=== PATIENT | female | born 1945 | race Caucasian/White ===

== ENCOUNTER 2017-05-21 16:31 | Inpatient (IN) ==
[2017-05-21] MEDS ORDERED: MORPHINE IV ONE ×2 (17:57→21:06)
[2017-05-21] MEDS ORDERED: ZOFRAN IV ONE ×2 (17:57→21:06)
--- NOTE | 2017-05-21 18:07 | PROVIDER DOCUMENTATION ---
This chart was entered by Cassie Nuñez Scribe, acting as scribe for Pema Almanza MD. HPI-Musculoskeletal Pain/Inj - GENERAL Source: patient - HX OF PRESENT ILLNESS-MUSKULOSKELTAL Quality of Pain: reports: sharp Severity in ED: mild Onset/Duration: just prior to arrival Timing: still present Any recent injury?: Yes Locality of Occurance: Home Similar Symptoms Previously?: Yes Recently seen or treated by another doctor?: No - FALL INJURY Location of Pain/Injury: reports: lower extremity (left hip left lower leg) Reason for Fall: reports: slipped Loss of Consciousness: no loss of consciousness <Pema Almanza - Last Filed: 05/21/17 18:07> <Rogerio Figueroa - Last Filed: 05/30/17 12:56> - GENERAL Chief Complaint: Fall Stated Complaint: FALL Time Seen by Provider: 05/21/17 17:36 - HX OF PRESENT ILLNESS-MUSKULOSKELTAL Nature of Presenting Problem: Pt is a 71 year old female who came to the ED with a cc of falling and hurting her left hip and not being able to get up off of the floor. Pt reports she fell on week ago and her hip was sore. today the pt fell again and hurt her left hip. Pt did not have any LOC. (Cassie Nuñez) Pt is a 71 year old female who came to the ED with a cc of falling and hurting her left hip and not being able to get up off of the floor. Pt reports she fell on week ago and her hip was sore. today the pt fell again and hurt her left hip. Pt did not have any LOC. (Pema Almanza) Review of Systems - Adult - REVIEW OF SYSTEMS - ADULT Constitutional: denies: chills, fever Eyes: reports: no symptoms reported Ears, Nose, Mouth & Throat: reports: no symptoms reported Cardiovascular: denies: chest pain, irregular heart rate, syncope Respiratory: reports: no symptoms reported Gastrointestinal: reports: no symptoms reported Genitourinary: reports: no symptoms reported Musculoskeletal: reports: bone pain (left leg). denies: frequent leg cramps, joint swelling Integumentary: reports: no symptoms reported Neurological: reports: no symptoms reported Psychiatric: reports: no symptoms reported Endocrine: reports: no symptoms reported Hematologic/Lymphatic: reports: no symptoms reported Allergic/Immunologic: reports: no symptoms reported All Other Systems: Reviewed and Negative <Pema Almanza - Last Filed: 05/21/17 18:07> - REVIEW OF SYSTEMS - ADULT Constitutional: reports: see HPI <Rogerio Fgiueroa - Last Filed: 05/30/17 12:56> Past History - Adult - PAST MEDICAL HISTORY-ADULT Review of Records: reports: Old Records Reviewed, Nursing Assessment Review Major Childhood Illnesses: reports: denies history Cardiovascular: reports: HTN Respiratory: reports: denies history Gastrointestinal: reports: denies history Obstetrical/Gynecological: reports: denies history Genitourinary: reports: denies history Musculoskeletal: reports: denies history Neurological: reports: denies history Endocrine/Immune: reports: denies history Other Conditions: reports: denies history <Pema Almanza - Last Filed: 05/21/17 18:07> - PAST MEDICAL HISTORY-ADULT Review of Records: reports: Old Records Reviewed <Rogerio Figueroa - Last Filed: 05/30/17 12:56> Physical Exam-Injury Related - Physical Exam-Injury Related Initial Vital Signs Reviewed: Yes General Appearance: alert, mild distress Eyes: PERRL/EOMI, pink conjunctivae Head, Ears, Nose, Mouth & Throat: normocephalic/atraumatic, moist mucous membranes Neck: non-tender, full range of motion Respiratory: chest non-tender, lungs clear Cardiovascular: normal peripheral pulses, regular rate, rhythm Abdominal Exam: normal bowel sounds, non tender, soft Back Exam: normal inspection Extremity: deformity (left leg shortened and rotated). negative: normal range of motion, normal gait Integumentary: normal color, warm/dry Neurologic: grossly normal Psych/Mental Status: normal mood/affect, normal thought content, normal thought process, oriented x 3 - Glascow Coma Score Best Eye Response ([place]): (4) open spontaneously Best Verbal Response ([place]): (5) oriented Best Motor Response ([place]): (6) obeys commands Lyndsay Total: 15 <Pema Almanza - Last Filed: 05/21/17 18:07> - Physical Exam-Injury Related General Appearance: alert <Rogerio Figueroa - Last Filed: 05/30/17 12:56> Progress - CHANGE OF SHIFT REPORT (ED Provider) Report Given and Care Transferred to:: rogerio figueroa Time of Transfer: 18:00 Items Pending: Labs, XRAY Results, Pain Control <Pema Almanza - Last Filed: 05/21/17 18:07> - PLAN OF CARE/RESULTS Result Diagrams: 05/24/17 05:55 05/23/17 05:30 - XRAY 1 XRAY Study: Chest Impression: See EMR Report (Borderline cardiomegaly Per radiologist.) - CT/MRI 1 CT Study: Cervical Spine, Head Impression: See EMR Report (Normal per radiologist) 2 CT Study: Pelvis Impression: See EMR Report (Intertrochanteric fx per radiologist.) - CONSULTS/PCP/HOSPITALIST Notification #1 *Consult/PCP/Hospitalist*: Dr. Reynolds Time Discussed: 21:20 Consult Disposition: Will see in ED, Admit <Rogerio Figueroa - Last Filed: 05/30/17 12:56> - PLAN OF CARE/RESULTS Progress/Plan/Lab Results: Orders Category Date Time Status Admit - [facility] - [facility] Routine AdmDCTranf 05/22/17 00:12 Ordered Activity - Strict Bedrest ORDERED Care 05/22/17 00:12 Active Apply Mechanical Device [QM] ORDERED Care 05/22/17 00:12 Active Kyle's Traction Placement ONCE Care 05/21/17 21:06 Completed Alonzo Cath Insertion ORDERED Care 05/21/17 17:57 Completed IV Insertion ORDERED Care 05/21/17 17:56 Completed Intake and Output-Strict ORDERED Care 05/22/17 00:12 Active Vital Signs Order Q 8-HR ASSESS Care 05/22/17 00:12 Completed NPO Diet 05/22/17 00:01 Completed CHEST-1 VIEW [RAD] Stat Exams 05/21/17 19:[address] HEAD/C-SPINE W/O CONTRAST [CT] Stat Exams 05/21/17 17:[address] PELVIS W/O CONTRAST [CT] Stat Exams 05/21/17 17:56 Completed CBC WITH DIFF [HEME] Stat Lab 05/21/17 18:33 Completed CBC WITH NO DIFF [HEME] Routine Lab 05/22/17 05:05 Completed COMPREHENSIVE METABOLIC PANEL [CHEM] Stat Lab 05/21/17 18:33 Completed PROTIME WITH INR [COAG] Stat Lab 05/21/17 18:33 Completed URINALYSIS W/POSS RFLX CULT-1 [URINALYSIS] Stat Lab 05/21/17 19:51 Completed 0.9% Sodium Chloride Inj [Ns] 1,000 ml Med 05/21/17 23:30 Discontinued IV 75 mls/hr Alendronate [Fosamax] Med 05/22/17 09:00 Discontinued 70 mg PO Q7D Amlodipine [Norvasc] Med 05/22/17 09:00 Discontinued 10 mg PO DAILY Gabapentin [Neurontin] Med 05/22/17 09:00 Discontinued 300 mg PO TID Hydrocodone/APAP 5 mg/325 mg [[place]-5] Med 05/21/17 23:30 Discontinued 1 each PO Q6H LISINOpril [Prinivil] Med 05/22/17 09:00 Discontinued 40 mg PO DAILY Morphine Med 05/21/17 23:29 Discontinued 2 mg IV Q4H PRN PRN Morphine Med 05/21/17 17:57 Discontinued 4 mg IV NOW ONE Morphine Med 05/21/17 21:06 Discontinued 4 mg IV NOW ONE Ondansetron [Zofran] Med 05/21/17 17:57 Discontinued 4 mg IV NOW ONE Ondansetron [Zofran] Med 05/21/17 21:06 Discontinued 4 mg IV NOW ONE Transfer/Admit Order [TRANSFER] Routine Transfer 05/21/17 23:25 Completed Departure <Pema Almanza - Last Filed: 05/21/17 18:07> - Departure Date of Disposition Decision: 05/21/17 Time of Disposition Decision: 22:00 Certified Medical Emergency: Emergent - Critical Care Note This patient required my direct & personal management of CC.: No <Rogerio Figueroa - Last Filed: 05/30/17 12:56> - Departure DIAGNOSIS: Hip fracture Qualifiers: Encounter type: initial encounter Disposition: ADMITTED INPATIENT 09 Condition: Stable Attestation - Physician/ DONA Attestation Patient care was provided by Advanced Practice Provider:: Yes Advanced Practice Provider:: Rogerio Figueroa Advanced Practice Provider documentation review:: The Mid-level provider documentation, treatment plan and medical decision making was reviewed by the physician who agrees with all treatment and medical decision making by the MLP. The physician spent face to face time with patient:: Yes Advanced Practice Provider documentation review:: Supervising physician onsite and consulted in the evaluation and care of this patient. The physician did have a face to face encounter with the patient. <Rogerio Figueroa - Last Filed: 05/30/17 12:56> This chart was documented by the indicated scribe, (Cassie Nuñez Scribe) and accurately reflects the services I performed and decisions made by me, Pema Almanza MD, as attested by the provider's signature.
[2017-05-21 19:02] LABS: INR 0.96
[2017-05-21 19:11] LABS: BASO% 0.1 % (0.0-0.8); EOS# 0.14 X1000 (0.0-0.7); EOS% 0.6 % (0.0-10.0); HEMATOCRIT 46.3 % (37.0-47.0); HEMOGLOBIN 15.5 g/dL (12.0-16.0); IMM GRAN# 0.41 X1000 (0.0-0.04); IMM GRAN% 1.8 % (0.0-0.5); LYMPH# 2.51 X1000 (1.2-3.4); LYMPH% 11.3 % (20.5-51.1); MANUAL DIFF NEEDED? NO; MCH 30.7 PG (27-31); MCHC 33.5 g/dL (33-37); MCV 91.7 FL (81-99); MONO% 12.6 % (1.7-9.3); MPV 10.8 FL (7.4-10.4); NEUT% 73.6 % (42.2-75.2); PLT 235 X1000 (130-400); RBC 5.05 XMIL (4.2-5.4)
[2017-05-21 19:38] LABS: AGAP 19; ALBUMIN 3.6 g/dL (3.5-5.0); ALKALINE PHOSPHATASE 55 U/L (32-104); BUN 22 mg/dL (8-22); CHLORIDE 99 mmol/L (98-107); COSMO 283; GOT 21 U/L (10-30); GPT 21 U/L (10-36); POTASSIUM 4.7 mmol/L (3.5-5.1); SODIUM 137 mmol/L (136-145); TCO2 19 mmol/L (25-35); TOTAL BILIRUBIN 0.22 mg/dL (0.20-1.00); TOTAL PROTEIN 6.3 g/dL (6.3-8.3)
--- NOTE | 2017-05-21 19:39 | Diag Imaging Result Doc PS360 ---
EXAM: HEAD/C-SPINE W/O CONTRAST HISTORY: fall leg pain TECHNIQUE: CT of the head without contrast; CT of the cervical spine COMMENT: There are calcifications in the left vertebral and both internal carotid arteries. There is no evidence of mass effect bleed or abnormal extra-axial fluid collection. There are no previous studies. There are no acute bony abnormalities. Cervical spine: There is no evidence of fracture or subluxation. There is severe facet arthropathy on the left at the C4-5 level. IMPRESSION: 1. No evidence of acute intracranial disease. 2. Facet arthropathy. No evidence of acute bony disease in the cervical spine. Electronically signed by Minor Brock 05/21/2017 7:36 PM
--- NOTE | 2017-05-21 19:41 | Diag Imaging Result Doc PS360 ---
EXAM: PELVIS W/O CONTRAST HISTORY: fall left hip pain TECHNIQUE: CT of the bony pelvis COMMENT: There is severe degenerative changes in the lower lumbar spine including hypertrophic facet disease at the L5-S1 level. There is vacuum joint phenomenon in the right sacroiliac joint. There is a minimally displaced intertrochanteric fracture of the proximal left femur. There is degenerative change in the symphysis pubis. IMPRESSION: Left intertrochanteric fracture. Degenerative changes. Electronically signed by Minor Brock 05/21/2017 7:39 PM
--- NOTE | 2017-05-21 19:43 | Diag Imaging Result Doc PS360 ---
EXAM: CHEST-1 VIEW HISTORY: weakness TECHNIQUE: AP chest COMMENT: The left ventricle is somewhat prominent. The lungs appear to be clear. There are no previous studies available for comparison. IMPRESSION: Borderline cardiomegaly. Electronically signed by Minor Brock 05/21/2017 7:41 PM
[2017-05-21 20:01] LABS: BILIRUBIN URINE NEGATIVE (NEGATIVE); BLOOD URINE NEGATIVE (NEGATIVE); COLOR YELLOW; GLUCOSE URINE NEGATIVE (NEGATIVE); LEUKOCYTES URINE NEGATIVE (NEGATIVE); NITRITE URINE NEGATIVE (NEGATIVE); PH URINE 5.5; PROTEIN URINE TRACE mg/dL (NEGATIVE); SP GRAVITY URINE 1.024; TURBIDITY URINE CLEAR (CLEAR); URINE CULTURE NEEDED? NO; URINE MICRO REVIEW NEEDED? NO; URINE SOURCE CATH; UROBILINOGEN URINE NORMAL (NORMAL)
[2017-05-21 20:02] LABS: UR EPITHELIAL CELLS <10 /HPF (<10); URINE BACTERIA NEGATIVE /HPF; URINE RBC <10 /HPF (<10); URINE WBC <10 /HPF (<10)
[2017-05-22] MEDS: MORPHINE IV PRN ×4 (00:17→09:19)
[2017-05-22] MEDS: NORCO-5 PO SCH ×3 (00:28→14:14)
[2017-05-22] MEDS: NS 1,000 ML IV SCH ×3 (02:42→14:24)
--- NOTE | 2017-05-22 04:23 | HISTORY AND PHYSICAL ---
PRIMARY CARE PHYSICIAN: Dr. Valentine Islas. CHIEF COMPLAINT: Fall. HISTORY OF PRESENT ILLNESS: Ms. Decker is a 71-year-old lady with a past medical history of chronic back pain, hypertension, major depression disorder who comes to the hospital complaining of hip pain secondary to fall. The patient states that earlier today, around 2:30 p.m., she decided to take a nap, was on her way to her bed and right next to it, she fell. The patient did hit her head. Did not lose consciousness. The patient denies feeling any chest pain, shortness of breath, or dizziness prior to the incident. However, she states that her right before it, she took gabapentin and oxycodone, and attributes her fall to using these 2 medications. The patient was found on the ground by her who tried to get her up. He was not successful and therefore called EMS who picked the patient up and brought her to the hospital. REVIEW OF SYSTEMS: Positive for left hip pain, worse with movement. Without movement, it is 2/10. PAST MEDICAL HISTORY: Chronic back pain secondary to spinal stenosis, hypertension, major depression disorder, GERD, osteopenia. PAST SURGICAL HISTORY: Cholecystectomy, right knee replacement, and cataract surgery. ALLERGIES: None. HOME MEDICATIONS: The patient states she does not remember exactly what her doses are but she does remember her medications which include lisinopril, amlodipine, sertraline, omeprazole, alendronate on Sundays, gabapentin 300 mg t.i.d., oxycodone p.r.n. back pain. SOCIAL HISTORY: Patient stopped smoking as a teenager. Does not use alcohol or illicit drugs. Patient lives with her . PHYSICAL EXAMINATION: VITAL SIGNS: Temperature 97.8 degrees, pulse 76, respirations 24, blood pressure 171/50, oxygen saturation 98% on room air. GENERAL: Patient is alert and oriented x3. No acute distress. HEENT: Head is normocephalic, atraumatic. Eyes, PERRLA. Moist mucous membranes. NECK: Supple. No JVD. PULMONARY: Well-ventilated bilaterally. No wheezing, rales, or crackles. CARDIOVASCULAR: S1, S2. No rubs, murmurs, or gallops. ABDOMEN: Soft, nondistended, nontender. EXTREMITIES: No lower extremity edema. The patient is unable to move her left extremity due to pain. The patient has intact sensation in both extremities. Palpable pulses on both extremities. Positive pedal pulses. NEUROLOGIC: Cranial nerves 2-12 grossly intact. No focal deficits. PSYCHIATRIC: Normal mood and affect. LABORATORY DATA: White blood cell count 22, hemoglobin 15.5, hematocrit 46, platelets 235,000. Sodium 137, potassium 4.7, BUN 22, creatinine 0.5, glucose 201. LFTs within normal limits. INR 0.9. IMAGING: Chest x-ray shows borderline cardiomegaly. CT of the bony pelvis shows left intertrochanteric fracture with some degenerative changes. Head CT shows no acute intracranial disease. ASSESSMENT AND PLAN: 1. Left intertrochanteric fracture. Orthopedics will be consulted. The patient will be placed nothing per oral. Pain management will be with intravenous morphine. The patient has a Kyle's traction device of 5 pounds. 2. Leukocytosis. This is likely reactive leukocytosis secondary to the fall. The patient does not have any fever or any other signs of infection. We will continue to monitor and follow a CBC for tomorrow. 3. Falls. The patient states this is the 2nd time that she falls. She may need readjustment in home medications, especially gabapentin and oxycodone. 4. Hypertension. We will continue patient's home medication, lisinopril and amlodipine. 5. Chronic pain. As mentioned above, she may need readjustment in gabapentin and Vicodin. At the moment, due to the fracture, pain management will be controlled with intravenous morphine. 6. Osteoporosis. It is recommended that the patient might discontinue proton pump inhibitors and also for May 22, she is due for her medication alendronate. CODE STATUS: Full code. cc: Eva Reynolds MD
[2017-05-22 05:52] LABS: HEMATOCRIT 44.4 % (37.0-47.0); HEMOGLOBIN 14.6 g/dL (12.0-16.0); MCH 30.6 PG (27-31); MCHC 32.9 g/dL (33-37); MCV 93.1 FL (81-99); MPV 10.5 FL (7.4-10.4); RBC 4.77 XMIL (4.2-5.4)
[2017-05-22] MEDS ORDERED: DIPRIVAN 1% ONE (08:57)
[2017-05-22] MEDS ORDERED: FOSAMAX PO SCH (09:00)
[2017-05-22] MEDS: NEURONTIN PO SCH ×3 (09:21→17:02)
[2017-05-22] MEDS: NORVASC PO SCH (09:23)
[2017-05-22] MEDS ORDERED: ZOFRAN ONE (10:39)
[2017-05-22] MEDS ORDERED: DECADRON ONE (10:39)
[2017-05-22] MEDS ORDERED: KEFZOL 2 GM/D5W 2 GM/50 ML IVPB ONE (11:28)
[2017-05-22] MEDS ORDERED: NEOSPORIN G.U. IRRIGANT ONE (11:28)
[2017-05-22] MEDS ORDERED: FENTANYL ONE (12:06)
[2017-05-22] MEDS: MORPHINE ONE ×2 (13:06→13:11)
[2017-05-22] MEDS ORDERED: PHENERGAN ONE (13:17)
[2017-05-22] MEDS ORDERED: MORPHINE ONE (13:24)
[2017-05-22] MEDS ORDERED: NS 1,000 ML ONE (13:24)
[2017-05-22] MEDS ORDERED: LR 500 ML ONE (13:26)
[2017-05-22] MEDS ORDERED: HALDOL IV PRN (14:24)
[2017-05-22] MEDS ORDERED: MORPHINE IV PRN (14:24)
[2017-05-22] MEDS ORDERED: MILK OF MAGNESIA PO PRN (14:24)
[2017-05-22] MEDS ORDERED: ZOFRAN IV PRN (14:24)
--- NOTE | 2017-05-22 14:32 | PROGRESS NOTE ---
DATE: 05/22/2017 SUBJECTIVE: Ms. Decker was admitted this morning. Valentine Islas MD is her primary care physician. The story was I think that she had a fall about a week ago and then had a recent fall and apparently was ambulating in between, but this time they found a left hip fracture. Scheduled this morning. Actually she has already had her open reduction, internal fixation. OBJECTIVE: Vital signs: She has remained afebrile. Temperature 99.8 degrees, pulse 80, respirations 20, blood pressure 170/64. Lungs: Clear in all lung kohler. Cardiovascular: Regular rate without murmur or S3. Abdomen: Soft. Skin: Warm and dry. : Urine output 1100 mL. LABORATORY: White count 17,210, hematocrit 44, platelet count 243,000. Chemistry: Sodium 137, potassium 4.7, chloride 99, bicarb 19, BUN 22, creatinine 0.5. Liver functions unremarkable. Note she had a chest x-ray, borderline cardiomegaly, otherwise, unremarkable pelvic CT. ASSESSMENT AND PLAN: 1. Left intertrochanteric fracture. Degenerative changes seen. Head and cervical spine, no evidence of acute intracranial disease. Facet arthropathy noted. Patient seems to be doing well. Note leukocytosis will follow. Suspect this is demargination from pain and stress. 2. Hypertension. We will watch blood pressure. 3. History of chronic pain. We will readjust her gabapentin and Vicodin. I think they want to try and go to rehab also. 4. History of osteoporosis. Review orders. I do not see anything to change at this point. I know that they would like to go to rehab, so we will get social media marketing manager involved. I think they would like to try and go to [facility] I think is what she said. cc: Vijay Walker MD
--- NOTE | 2017-05-22 15:35 | OPERATIVE NOTE ---
PROCEDURE DATE: 05/22/2017 PREOPERATIVE DIAGNOSIS: Left intertrochanteric femur fracture. POSTOPERATIVE DIAGNOSIS: Left intertrochanteric femur fracture. PROCEDURE: Intramedullary nailing of left femur with a Synthes 11 x 360 mm TFN nail. SURGEON: Joseph Monet MD. ANESTHESIA: General. IV FLUIDS: 500 mL lactated Ringer's. ESTIMATED BLOOD LOSS: 150 mL. COMPLICATIONS: None. INDICATION: The patient is a 71-year-old female who is 1-day status post fall, injuring her left hip. She presented to the emergency room. CT scan revealed intertrochanteric femur fracture. Recommendation to proceed with intramedullary nailing was offered. Risks and benefits of the surgery were explained, including risk of anesthesia, , bleeding, infection, failure to relieve pain, postoperative stiffness, nerve injury, blood clots, and other imponderables. All questions were answered. The patient and family wished to proceed with surgery. DETAILS OF OPERATION: The patient was taken to the operating room and placed supine on the operating table. Once adequate anesthesia was obtained, the patient was placed on a fracture table. I had good alignment confirmed with C-arm visualization. The left lower extremity was subsequently prepped and draped in usual sterile fashion. At approximately 3 fingerbreadths proximal to the greater trochanter, a lateral incision was made. Blunt dissection was performed through the gluteus lori with the Rowan scissors. After this had been performed, a guide pin was then placed on the tip of the greater trochanter into the intramedullary canal. I had good position confirmed with C-arm visualization. A starting reamer was passed. A ball-tip guide pin was then placed into the intramedullary canal, down the femoral shaft. The length of the nail was determined to be 360 mm. Reaming was then conducted up to size 12 mm. An 11 x 360 mm Synthes TFN nail was then impacted in position. I had good position confirmed with C-arm visualization. Using the outrigger guide, an incision made along the lateral proximal femur. The guide was then placed along the lateral cortex of the proximal femur. A guide pin was then placed across the fracture site into the femoral neck and head. It had good position confirmed with C-arm visualization, in both AP and lateral projections. The lateral cortex was reamed. A 90 mm helical blade was then impacted in position and had good purchase. The proximal screw was tightened. Attention then turned to the distal femur where, using perfect-seminole technique through 2 small stab incisions, 2 distal locking screws were placed in standard fashion. After this had been placed, the final C-arm visualization revealed good alignment of the fracture and good position of the hardware. The wounds were copiously irrigated. Number 1 Vicryl was used to repair the deep fascia on the proximal wound, followed by 2-0 Vicryl in 2 proximal wounds, and skin chacha in all the wounds. Adaptic, sterile 4x4's, ABD pad, and tape to the left lower extremity. The patient tolerated the procedure well, no complications. She was transferred to recovery room in stable condition. cc: Joseph Monet MD
[2017-05-22] MEDS: PRINIVIL PO SCH (17:01)
[2017-05-22] MEDS: OXY IR PO PRN ×2 (17:01→20:13)
[2017-05-22] MEDS: TYLENOL PO SCH ×2 (18:10→21:52)
--- NOTE | 2017-05-22 18:54 | CONSULTATION ---
DATE OF CONSULTATION: 05/22/2017 CLINICAL HISTORY: The patient is a pleasant 71-year-old female, who is status post fall yesterday afternoon. She was at home and she lost her balance and fell while she was on the way to her bed. The patient struck her head; however, did not lose consciousness. She does have a history of chronic back pain. She was found on the ground by are who tried to assist her up and she was subsequently transported per EMS to the emergency room. X-rays were obtained that revealed a left intertrochanteric femur fracture and orthopedic evaluation was requested. HOME MEDICATIONS: Lisinopril, amlodipine, sertraline, omeprazole, alendronate Sundays, gabapentin 300 mg t.i.d., oxycodone p.r.n. pain. ALLERGIES: None. PAST MEDICAL HISTORY: Significant for chronic back pain with spinal stenosis, hypertension, major depression disorder, gastroesophageal reflux disease, osteopenia. PAST SURGICAL HISTORY: Cholecystectomy, right knee replacement, cataract surgery. PHYSICAL EXAMINATION: Patient is awake, alert, and cooperative with exam. She has no significant tenderness to palpation along the cervical spine. Her bilateral upper extremities are with no palpable deformity. She is able actively elevate her arms without difficulty. She has no significant pain with range of motion. Patient's right lower extremity is grossly neurovascularly intact. Has no significant pain with gentle range of motion hip, knee and ankle. Her left hip is currently in 5 pounds of Kyle's traction. Diffuse tenderness to palpation along the hip. She has tenderness with gentle movement. Calf is soft. She is grossly neurovascularly intact distally. DIAGNOSTICS: Her x-rays were reviewed and revealed a left intertrochanteric femur fracture. IMPRESSION: Left intertrochanteric femur fracture. PLAN: At this point, I discussed treatment options with patient and family. At this time would recommend proceeding with intramedullary nailing of the left femur. Risks and benefits of surgery were explained, including the risks of anesthesia, , bleeding, infection, failure to relieve pain, postoperative stiffness, nerve injury, blood clots, and other imponderables. All questions answered. The patient and family wished to proceed with surgery. Plan on surgery later today. cc: Joseph Monet MD MTDD
[2017-05-22] MEDS: KEFZOL 2 GM/D5W 2 GM/50 ML IVPB IV SCH (20:14)
[2017-05-22] MEDS: COLACE PO SCH (21:52)
[2017-05-22] MEDS: PERIDEX MT SCH (21:53)
[2017-05-23] MEDS: OXY IR PO PRN ×6 (02:27→23:21)
[2017-05-23] MEDS: NS 1,000 ML IV SCH ×2 (02:28→16:27)
[2017-05-23] MEDS: KEFZOL 2 GM/D5W 2 GM/50 ML IVPB IV SCH ×2 (02:33→12:07)
[2017-05-23] MEDS: TYLENOL PO SCH ×4 (05:37→23:47)
[2017-05-23] MEDS: XARELTO PO SCH (05:37)
[2017-05-23 06:01] LABS: MANUAL DIFF NEEDED? NO
[2017-05-23 06:05] LABS: BASO% 0.1 % (0.0-0.8); HEMATOCRIT 40.7 % (37.0-47.0); HEMOGLOBIN 13.2 g/dL (12.0-16.0); IMM GRAN# 0.12 X1000 (0.0-0.04); IMM GRAN% 0.7 % (0.0-0.5); LYMPH# 1.69 X1000 (1.2-3.4); LYMPH% 10.5 % (20.5-51.1); MCH 30.6 PG (27-31); MCHC 32.4 g/dL (33-37); MCV 94.2 FL (81-99); MONO# 2.62 X1000 (0.11-0.59); MONO% 16.3 % (1.7-9.3); MPV 10.1 FL (7.4-10.4); NEUT% 72.4 % (42.2-75.2); PLT 204 X1000 (130-400); RBC 4.32 XMIL (4.2-5.4)
--- NOTE | 2017-05-23 06:05 | EKG Report ---
Test Performed on : 05/22/2017 09:27:25 AM Test Reason : pre op Blood Pressure : / mmHG Vent. Rate : 072 BPM Atrial Rate : 072 BPM P-R Int : 162 ms QRS Dur : 080 ms QT Int : 392 ms P-R-T Axes : 047 015 033 degrees QTc Int : 429 ms Normal sinus rhythm. Normal ECG When compared with ECG of 26-DEC-2007 10:22, No significant change was found Nonspecific T wave abnormality III T wave amplitude has increased in V1-V3 Confirmed by Micah Espana DO ([id number]) on 05/26/2017 6:58:57 AM
[2017-05-23 06:51] LABS: AGAP 10; BUN 9 mg/dL (8-22); CALCIUM 8.4 mg/dL (8.8-10.2); CHLORIDE 102 mmol/L (98-107); COSMO 278; POTASSIUM 4.2 mmol/L (3.5-5.1); SODIUM 139 mmol/L (136-145); TCO2 27 mmol/L (25-35)
--- NOTE | 2017-05-23 07:04 | PROGRESS NOTE ---
DATE: 05/23/2017 HISTORY: The patient is a pleasant, 71-year-old female who is 1 day status post intramedullary nailing of the left femur. She is currently resting comfortably and has no complaints. PHYSICAL EXAMINATION: On physical examination of the left lower extremity, the dressing is intact. Her calf is soft. She has active dorsiflexion and plantarflexion. She is neurovascularly intact distally. LABORATORY DATA: Her hemoglobin is 13.2, hematocrit is 40.7. IMPRESSION: Postoperative day #1 status post intramedullary nailing of the left femur. PLAN: At this point, we will mobilize with physical therapy. The patient will be weightbearing as tolerated to the left lower extremity. We will consult social media developer for discharge planning. cc: Joseph Monet MD
[2017-05-23] MEDS: NEURONTIN PO SCH ×3 (08:52→17:17)
[2017-05-23] MEDS: FERROUS SULFATE PO SCH (08:52)
[2017-05-23] MEDS: NORVASC PO SCH ×2 (08:52→20:52)
[2017-05-23] MEDS: PRINIVIL PO SCH ×2 (08:53→20:52)
[2017-05-23] MEDS: PERIDEX MT SCH ×2 (08:53→20:07)
[2017-05-23] MEDS: ZOLOFT PO SCH (08:57)
--- NOTE | 2017-05-23 09:38 | PROGRESS NOTE ---
DATE: 05/23/2017 SUBJECTIVE: Mr. Decker has had a good night. Doing well. Still has some hip pain but she ate a good breakfast and breathing comfortably. PHYSICAL EXAMINATION: Vital Signs: Temperature 98.6 degrees, pulse 69, respirations 17, blood pressure 128/39. Lungs: Clear in all lung kohler. Cardiovascular Examination: Regular rhythm and rate without murmur or S3. Abdomen: Soft. Skin: Is warm and dry. Is and Os: Urine output 2600 mL. LAB REVIEW: From this morning, white count 16,070, hematocrit 40, platelet count 204,000. Chemistry: Sodium 139, potassium 4.2, chloride 102, bicarb 27, BUN 9, creatinine 0.4, blood sugar 201 and 128. ASSESSMENT AND PLAN: 1. Postoperative day a, status post intramedullary nailing of the femur. Doing well. Continue physical therapy, mobilize. 2. History of hypertension. Blood pressure well controlled. 3. History of chronic pain, aware. 4. History of osteoporosis. 5. I have reviewed her lab and have reviewed the current orders. Note that hematocrit is stable at 40. Orders looked good. We started her back on her Zoloft which she takes at home. She is on Xarelto 10 mg, back on her Neurontin 300 mg three times a day, Prinivil 40 mg a day, amlodipine 10 mg a day. She takes Fosamax 70 mg by mouth weekly. Intravenous fluid is going at 83 mL an hour, normal saline. cc: Vijay Walker MD
[2017-05-23] MEDS: COLACE PO SCH (20:07)
[2017-05-24] MEDS: OXY IR PO PRN ×4 (03:12→14:09)
[2017-05-24] MEDS: XARELTO PO SCH (06:20)
[2017-05-24] MEDS: TYLENOL PO SCH (06:21)
[2017-05-24 06:31] LABS: HEMATOCRIT 40.1 % (37.0-47.0); HEMOGLOBIN 12.8 g/dL (12.0-16.0)
--- NOTE | 2017-05-24 06:44 | PROGRESS NOTE ---
DATE: 05/24/2017 SUBJECTIVE: The patient is a pleasant 71-year-old female who is 2 days status post intramedullary nailing of the left femur. The patient is currently resting comfortably. OBJECTIVE: Her vital signs are stable. Left lower extremity. Her wounds look good. There are no signs of infection. Her calf is soft. She is neurovascularly distally. She has active dorsiflexion and plantar flexion. Her hemoglobin and hematocrit is pending. IMPRESSION: Postoperative day #2, status post intramedullary nailing of the left femur. PLAN: At this point, discussed treatment options with the patient. At this time, child protective services social worker has been consulted for inpatient rehabilitation. We will change her dressing today. She is stable from an orthopedic standpoint. cc: Joseph Monet MD
[2017-05-24] MEDS: FERROUS SULFATE PO SCH (08:43)
[2017-05-24] MEDS: ZOLOFT PO SCH (08:43)
[2017-05-24] MEDS: NORVASC PO SCH (08:43)
[2017-05-24] MEDS: PERIDEX MT SCH (08:43)
[2017-05-24] MEDS: PRINIVIL PO SCH (08:44)
[2017-05-24] MEDS ORDERED: NEURONTIN PO SCH (09:00)
--- NOTE | 2017-05-24 09:42 | DISCHARGE SUMMARY ---
ADMISSION DATE: 05/22/2017 DISCHARGE DATE: 05/24/2017 PATIENT PROFILE: She is a patient of Dr. Valentine Islas. HISTORY OF PRESENT ILLNESS: This is a 71-year-old with past medical history of chronic back pain, hypertension, major depression disorder, who came to the hospital complaining of hip pain secondary to fall. She states that earlier in that day around 2:30 p.m. she had decided to take a nap on her way to her bed at night, and right next to it she fell. The patient did hit her head. Did not lose consciousness. Denies feeling any chest pain, shortness of breath. No dizziness prior to the accident. States the night before she had took gabapentin and oxycodone; attributes the fall to these 2 medications. The patient was found to be on the ground; the tried to get her up unsuccessful, brought her to the emergency room, positive for left hip pain and found a left hip fracture. PAST MEDICAL HISTORY: 1. Chronic pain syndrome due to spinal stenosis. 2. Hypertension. 3. Major depression disorder. 4. Gastroesophageal reflux disease. 5. Osteopenia. PAST SURGICAL HISTORY: 1. Status post cholecystectomy. 2. Status post right knee replacement. 3. Cataract surgery. ALLERGIES: Codeine. No other known drug allergies. HOSPITAL COURSE: Orthopedic surgeon, Dr. Joseph Monet, evaluated her and performed surgery on 05/22/2017, intramedullary nailing of the femur. She tolerated this well. Tolerated physical therapy. No complications. She had very mild acute blood loss; hematocrit went from 46 to 40 and remained stable. [place] she could go to rehab at [facility] on 05/24/2017. DISCHARGE MEDICATIONS: She will be discharged on Tylenol as needed 1000 mg p.o. q. 8 hours p.r.n. She takes Fosamax 70 mg p.o. q. week, Norvasc 10 mg a day, Colace 200 mg at bedtime, ferrous sulfate 325 mg with breakfast, Neurontin 300 mg that she takes 3 times a day at 9 o'clock, 3 o'clock, and 9 o'clock in the evening, lisinopril 40 mg a day, milk of magnesia 30 mL p.o. daily p.r.n. She is on oxycodone or OxyIR 5 mg q. 3 hours p.r.n., Xarelto 10 mg q. 24 hours and Zoloft 50 mg a day. cc: Vijay Walker MD
[2017-05-24] MEDS ORDERED: ZOFRAN PO ONE (12:30)
[2017-05-24] MEDS ORDERED: BLISTEX MEDICATED BERRY LIP BALM TOP PRN (12:39)
[2017-05-24 13:44] VITALS: BP 158/68
== END 2017-05-24 14:56 ==
LOC: ED 16:31 → 4N 23:53 → SUATTDRO 23:53
PROVIDERS: ATTEND Emergency Medicine

== ENCOUNTER 2017-07-12 09:05 | Inpatient (IN) ==
--- NOTE | 2017-07-12 10:33 | Diag Imaging Result Doc PS360 ---
CT ABD/PELVIS W/PO AND IV CON - 07/12/2017 INDICATION: ABD PN TECHNIQUE: A CT dose reduction protocol was used. COMPARISON: 05/21/2017 FINDINGS: There is a new large midline deep pelvic enhancing soft tissue and fluid density collection. This has a thick irregular enhancing soft tissue rim and collocated fluid center. This measures about 7.3 x 6.9 cm. This appears to arise from the uterine body and fundus. There is some trace surrounding free fluid is well. A portion of this collection does wrap around the sigmoid colon which is otherwise nonobstructed. There is mild nonspecific mesenteric edema with some top normal sized mesenteric lymph nodes. Otherwise, no bowel obstruction. Gallbladder is absent. The liver, pancreas, adrenals, and kidneys are normal. The spleen is slightly enlarged measuring 13.7 x 11.2 x 5.6 cm. There is stable anterolisthesis of L4 on L5 with stable spondylosis throughout the spine. IMPRESSION: 1. New, large midline pelvic enhancing fluid collection compatible with an abscess. The differential diagnosis includes a diverticular abscess, appendicitis, or uterine abscess. Urgent referral to general surgery recommended. 2. Mild splenic megaly. 3. A report was immediately called to the patient's healthcare provider. Electronically signed by Vincenzo Fowler 07/12/2017 10:30 AM
[2017-07-12] MEDS ORDERED: PROTONIX IV SCH (12:15)
[2017-07-12] MEDS ORDERED: SODIUM CHLORIDE 0.9% INJ SCH (12:15)
[2017-07-12] MEDS ORDERED: TYLENOL PO PRN (12:32)
[2017-07-12 12:53] LABS: BASO% 0.2 % (0.0-0.8); EOS# 0.05 X1000 (0.0-0.7); EOS% 0.2 % (0.0-10.0); HEMATOCRIT 38.5 % (37.0-47.0); HEMOGLOBIN 12.6 g/dL (12.0-16.0); IMM GRAN# 0.17 X1000 (0.0-0.04); IMM GRAN% 0.8 % (0.0-0.5); LYMPH# 2.47 X1000 (1.2-3.4); LYMPH% 12.3 % (20.5-51.1); MANUAL DIFF NEEDED? YES; MCH 29.6 PG (27-31); MCHC 32.7 g/dL (33-37); MCV 90.6 FL (81-99); MONO# 2.38 X1000 (0.11-0.59); MONO% 11.9 % (1.7-9.3); MPV 9.7 FL (7.4-10.4); NEUT% 74.6 % (42.2-75.2); PLT 376 X1000 (130-400); RBC 4.25 XMIL (4.2-5.4)
[2017-07-12] MEDS: ZOFRAN IV PRN (12:55)
[2017-07-12] MEDS: ZOSYN 3.375 GM in NS 50 ML IV SCH ×2 (12:55→18:57)
[2017-07-12 12:56] LABS: INR 1.08; PROTIME 11.4 Seconds (9.2-11.7)
[2017-07-12 13:26] LABS: AGAP 15; ALBUMIN 3.8 g/dL (3.5-5.0); ALKALINE PHOSPHATASE 67 U/L (32-104); BUN 7 mg/dL (8-22); CALCIUM 9.5 mg/dL (8.8-10.2); CHLORIDE 89 mmol/L (98-107); COSMO 263; GOT 10 U/L (10-30); GPT 10 U/L (10-36); MAGNESIUM 1.7 mg/dL (1.5-2.7); POTASSIUM 3.4 mmol/L (3.5-5.1); SODIUM 132 mmol/L (136-145); TCO2 28 mmol/L (25-35); TOTAL BILIRUBIN 0.34 mg/dL (0.20-1.00); TOTAL PROTEIN 7.5 g/dL (6.3-8.3)
[2017-07-12 14:08] LABS: LYMPHS 14 % (21-51); MONO 9 % (1-9)
[2017-07-12] MEDS: NS 1,000 ML IV SCH (16:29)
[2017-07-12] MEDS: LOVENOX SUBQ SCH (16:30)
[2017-07-12 18:33] LABS: URINE CULTURE NEEDED? NO; URINE MICRO REVIEW NEEDED? NO; URINE SOURCE CLEAN CATCH
[2017-07-12 18:37] LABS: BILIRUBIN URINE NEGATIVE (NEGATIVE); BLOOD URINE NEGATIVE (NEGATIVE); COLOR YELLOW; GLUCOSE URINE NEGATIVE (NEGATIVE); LEUKOCYTES URINE NEGATIVE (NEGATIVE); NITRITE URINE NEGATIVE (NEGATIVE); PH URINE 6.5; PROTEIN URINE NEGATIVE (NEGATIVE); SP GRAVITY URINE 1.022; TURBIDITY URINE CLEAR (CLEAR); UR EPITHELIAL CELLS <10 /HPF (<10); URINE BACTERIA NEGATIVE /HPF; URINE RBC <10 /HPF (<10); URINE WBC <10 /HPF (<10); UROBILINOGEN URINE NORMAL (NORMAL)
[2017-07-12] MEDS: NEURONTIN PO SCH (20:29)
[2017-07-12] MEDS: LIPITOR PO SCH (20:29)
[2017-07-12] MEDS: NORCO-7.5 PO PRN (20:42)
[2017-07-13] MEDS: NS 1,000 ML IV SCH ×4 (00:54→20:29)
[2017-07-13] MEDS: ZOSYN 3.375 GM in NS 50 ML IV SCH ×4 (00:54→20:29)
[2017-07-13 06:48] LABS: MANUAL DIFF NEEDED? NO
[2017-07-13 07:00] LABS: BASO% 0.3 % (0.0-0.8); EOS# 0.09 X1000 (0.0-0.7); EOS% 0.9 % (0.0-10.0); HEMATOCRIT 37.3 % (37.0-47.0); HEMOGLOBIN 12.2 g/dL (12.0-16.0); IMM GRAN% 1.1 % (0.0-0.5); LYMPH# 2.25 X1000 (1.2-3.4); LYMPH% 23.7 % (20.5-51.1); MCH 29.8 PG (27-31); MCHC 32.7 g/dL (33-37); MCV 91.2 FL (81-99); MONO# 1.14 X1000 (0.11-0.59); MPV 9.8 FL (7.4-10.4); PLT 353 X1000 (130-400); RBC 4.09 XMIL (4.2-5.4)
[2017-07-13 07:12] LABS: AGAP 11; BUN 6 mg/dL (8-22); CALCIUM 9.3 mg/dL (8.8-10.2); CHLORIDE 97 mmol/L (98-107); COSMO 273; POTASSIUM 3.9 mmol/L (3.5-5.1); SODIUM 137 mmol/L (136-145); TCO2 29 mmol/L (25-35)
[2017-07-13] MEDS: GLUCOSAMINE PO SCH (08:09)
[2017-07-13] MEDS: PRINIVIL PO SCH (08:09)
[2017-07-13] MEDS: CENTRUM SILVER PO SCH (08:10)
[2017-07-13] MEDS: NEURONTIN PO SCH ×3 (08:10→20:30)
[2017-07-13] MEDS: NORCO-7.5 PO PRN ×2 (08:10→15:27)
[2017-07-13] MEDS: VITAMIN D PO SCH (08:10)
[2017-07-13] MEDS: NORVASC PO SCH (08:10)
[2017-07-13] MEDS: LOFIBRA PO SCH (08:11)
[2017-07-13] MEDS: ZOLOFT PO SCH (08:12)
[2017-07-13] MEDS: PRILOSEC PO SCH (08:12)
[2017-07-13] MEDS ORDERED: BLISTEX MEDICATED BERRY LIP BALM TOP PRN (08:50)
[2017-07-13] MEDS ORDERED: GOLYTELY PO ONE (10:00)
[2017-07-13] MEDS: NEOMYCIN PO SCH ×3 (13:41→20:30)
[2017-07-13] MEDS: ERYTHROMYCIN BASE PO SCH ×3 (13:42→20:29)
[2017-07-13] MEDS: LOVENOX SUBQ SCH (15:27)
[2017-07-13] MEDS: ZOFRAN IV PRN (15:27)
[2017-07-13] MEDS: LIPITOR PO SCH (20:30)
[2017-07-14] MEDS: NORCO-7.5 PO PRN ×2 (01:35→05:49)
[2017-07-14] MEDS: ZOFRAN IV PRN (01:36)
[2017-07-14] MEDS: ZOSYN 3.375 GM in NS 50 ML IV SCH ×4 (01:36→20:24)
[2017-07-14 06:42] LABS: MANUAL DIFF NEEDED? NO
[2017-07-14 06:52] LABS: BASO% 0.6 % (0.0-0.8); EOS# 0.11 X1000 (0.0-0.7); EOS% 1.5 % (0.0-10.0); HEMATOCRIT 34.4 % (37.0-47.0); HEMOGLOBIN 11.1 g/dL (12.0-16.0); IMM GRAN# 0.11 X1000 (0.0-0.04); IMM GRAN% 1.5 % (0.0-0.5); LYMPH# 2.35 X1000 (1.2-3.4); LYMPH% 32.7 % (20.5-51.1); MCH 29.9 PG (27-31); MCHC 32.3 g/dL (33-37); MCV 92.7 FL (81-99); MONO# 0.86 X1000 (0.11-0.59); MPV 9.7 FL (7.4-10.4); NEUT% 51.7 % (42.2-75.2); PLT 321 X1000 (130-400); RBC 3.71 XMIL (4.2-5.4)
[2017-07-14 07:18] LABS: AGAP 9; BUN 3 mg/dL (8-22); CALCIUM 8.7 mg/dL (8.8-10.2); CHLORIDE 103 mmol/L (98-107); COSMO 280; POTASSIUM 4.7 mmol/L (3.5-5.1); SODIUM 142 mmol/L (136-145); TCO2 30 mmol/L (25-35)
[2017-07-14] MEDS: NEURONTIN PO SCH (09:20)
[2017-07-14] MEDS: NS 1,000 ML IV SCH ×3 (10:17→18:34)
[2017-07-14] MEDS ORDERED: DILAUDID IV PRN (10:19)
[2017-07-14] MEDS ORDERED: DIPRIVAN 1% ONE (13:10)
[2017-07-14] MEDS ORDERED: QUELICIN (DOSE) ONE (13:12)
[2017-07-14] MEDS ORDERED: XYLOCAINE-MPF 2% ONE (13:12)
[2017-07-14] MEDS ORDERED: NEO-SYNEPHRINE ONE (14:24)
[2017-07-14] MEDS ORDERED: NORCURON ONE (14:24)
[2017-07-14] MEDS ORDERED: SODIUM CHLORIDE 0.9% 10 ML ONE (14:24)
[2017-07-14] MEDS ORDERED: ZOFRAN ONE (14:39)
[2017-07-14] MEDS ORDERED: DECADRON ONE (14:39)
[2017-07-14] MEDS ORDERED: OFIRMEV 1000 MG/ISOTONIC SOLN 1,000 MG/100 ML BOTTLE ONE (14:39)
[2017-07-14] MEDS ORDERED: DILAUDID ONE (14:56)
[2017-07-14 15:24] LABS: URINE MICRO REVIEW NEEDED? NO; URINE SOURCE CATH
[2017-07-14 15:54] LABS: BILIRUBIN URINE NEGATIVE (NEGATIVE); BLOOD URINE NEGATIVE (NEGATIVE); COLOR YELLOW; GLUCOSE URINE NEGATIVE (NEGATIVE); LEUKOCYTES URINE NEGATIVE (NEGATIVE); NITRITE URINE NEGATIVE (NEGATIVE); PH URINE 6.5; PROTEIN URINE NEGATIVE (NEGATIVE); SP GRAVITY URINE 1.009; TURBIDITY URINE CLEAR (CLEAR); UROBILINOGEN URINE NORMAL (NORMAL)
[2017-07-14 15:55] LABS: UR EPITHELIAL CELLS <10 /HPF (<10); URINE BACTERIA NEGATIVE /HPF; URINE RBC <10 /HPF (<10); URINE WBC <10 /HPF (<10)
[2017-07-14] MEDS ORDERED: ROBINUL ONE (16:10)
[2017-07-14] MEDS ORDERED: NEOSTIGMINE ONE (16:11)
[2017-07-14] MEDS: MORPHINE ONE ×3 (16:54→17:04)
[2017-07-14] MEDS: DILAUDID ONE ×4 (17:12→17:42)
[2017-07-14] MEDS ORDERED: NS 1,000 ML ONE (17:35)
[2017-07-14] MEDS: PERIDEX MT SCH (20:24)
[2017-07-14] MEDS: LIPITOR PO SCH (20:25)
[2017-07-14] MEDS: DILAUDID IV PRN (20:26)
[2017-07-15] MEDS: NS 1,000 ML IV SCH ×3 (01:26→16:36)
[2017-07-15] MEDS: ZOSYN 3.375 GM in NS 50 ML IV SCH ×4 (01:26→23:14)
[2017-07-15] MEDS: DILAUDID IV PRN ×6 (01:27→17:28)
[2017-07-15] MEDS: NORCO-7.5 PO PRN ×3 (05:31→20:55)
[2017-07-15 05:44] LABS: MANUAL DIFF NEEDED? NO
[2017-07-15 06:02] LABS: BASO% 0.1 % (0.0-0.8); HEMATOCRIT 36.6 % (37.0-47.0); IMM GRAN# 0.15 X1000 (0.0-0.04); IMM GRAN% 0.8 % (0.0-0.5); LYMPH# 1.44 X1000 (1.2-3.4); LYMPH% 7.6 % (20.5-51.1); MCH 30.3 PG (27-31); MCHC 32.8 g/dL (33-37); MCV 92.4 FL (81-99); MONO# 1.28 X1000 (0.11-0.59); MONO% 6.8 % (1.7-9.3); MPV 9.8 FL (7.4-10.4); NEUT% 84.7 % (42.2-75.2); PLT 371 X1000 (130-400); RBC 3.96 XMIL (4.2-5.4)
[2017-07-15 06:14] LABS: AGAP 7; BUN 2 mg/dL (8-22); CALCIUM 8.5 mg/dL (8.8-10.2); CHLORIDE 105 mmol/L (98-107); COSMO 282; POTASSIUM 4.5 mmol/L (3.5-5.1); SODIUM 142 mmol/L (136-145); TCO2 30 mmol/L (25-35)
[2017-07-15] MEDS: ZOFRAN IV PRN ×2 (08:01→14:11)
[2017-07-15] MEDS: CENTRUM SILVER PO SCH ×2 (08:02→09:29)
[2017-07-15] MEDS: PRILOSEC PO SCH ×2 (08:02→09:30)
[2017-07-15] MEDS: NEURONTIN PO SCH ×4 (08:02→23:11)
[2017-07-15] MEDS: PRINIVIL PO SCH ×2 (08:02→09:30)
[2017-07-15] MEDS: VITAMIN D PO SCH ×2 (08:02→09:30)
[2017-07-15] MEDS: ZOLOFT PO SCH ×2 (08:03→09:29)
[2017-07-15] MEDS: NORVASC PO SCH ×2 (08:03→09:30)
[2017-07-15] MEDS: PERIDEX MT SCH ×2 (08:03→23:10)
[2017-07-15] MEDS: GLUCOSAMINE PO SCH ×2 (14:44→14:45)
[2017-07-15] MEDS: LOFIBRA PO SCH ×2 (14:45)
[2017-07-15] MEDS: LOVENOX SUBQ SCH (15:13)
[2017-07-15] MEDS: HUMULIN R SUBQ SCH ×2 (16:36→23:11)
[2017-07-15] MEDS: MYLICON DROPS PO PRN (16:38)
[2017-07-15] MEDS: LIPITOR PO SCH (23:10)
[2017-07-16] MEDS: NS 1,000 ML IV SCH ×4 (00:10→22:51)
[2017-07-16] MEDS: ZOSYN 3.375 GM in NS 50 ML IV SCH ×5 (05:39→22:52)
[2017-07-16] MEDS: HUMULIN R SUBQ SCH ×4 (06:12→22:55)
[2017-07-16 06:20] LABS: BASO% 0.1 % (0.0-0.8); HEMATOCRIT 37.2 % (37.0-47.0); HEMOGLOBIN 11.7 g/dL (12.0-16.0); IMM GRAN% 0.7 % (0.0-0.5); LYMPH# 2.51 X1000 (1.2-3.4); LYMPH% 8.4 % (20.5-51.1); MANUAL DIFF NEEDED? YES; MCH 29.8 PG (27-31); MCHC 31.5 g/dL (33-37); MCV 94.7 FL (81-99); MONO# 2.85 X1000 (0.11-0.59); MONO% 9.5 % (1.7-9.3); MPV 9.7 FL (7.4-10.4); NEUT% 81.3 % (42.2-75.2); PLT 484 X1000 (130-400); RBC 3.93 XMIL (4.2-5.4)
[2017-07-16 06:38] LABS: ALBUMIN 2.8 g/dL (3.5-5.0); CALCIUM 8.3 mg/dL (8.8-10.2); POTASSIUM 4.7 mmol/L (3.5-5.1); TOTAL BILIRUBIN 0.29 mg/dL (0.20-1.00); TOTAL PROTEIN 5.4 g/dL (6.3-8.3)
[2017-07-16 06:55] LABS: LYMPHS 9 % (21-51); MONO 8 % (1-9)
[2017-07-16] MEDS: PERIDEX MT SCH ×2 (09:45→22:51)
[2017-07-16] MEDS: PRILOSEC PO SCH (09:45)
[2017-07-16] MEDS: GLUCOSAMINE PO SCH (09:45)
[2017-07-16] MEDS: NORVASC PO SCH (09:45)
[2017-07-16] MEDS: PRINIVIL PO SCH (09:45)
[2017-07-16] MEDS: NEURONTIN PO SCH ×3 (09:46→22:51)
[2017-07-16] MEDS: ZOLOFT PO SCH (09:46)
[2017-07-16] MEDS: CENTRUM SILVER PO SCH (09:46)
[2017-07-16] MEDS: LOFIBRA PO SCH (09:46)
[2017-07-16] MEDS: VITAMIN D PO SCH (09:46)
[2017-07-16] MEDS: NORCO-7.5 PO PRN (09:46)
[2017-07-16] MEDS: LOVENOX SUBQ SCH (15:34)
[2017-07-16] MEDS ORDERED: MERREM 500 MG in NS 50 ML IV SCH (16:00)
[2017-07-16] MEDS ORDERED: VANCOMYCIN IV PER PHARMACY MISC SCH (16:00)
--- NOTE | 2017-07-16 16:08 | Diag Imaging Result Doc PS360 ---
CHEST-PORTABLE - 07/16/2017 INDICATION: dyspnea TECHNIQUE: COMPARISON: 05/21/2017 FINDINGS: Lung volumes are critically low with bibasilar crowding. Stable mild cardiomegaly. No definite infiltrates. IMPRESSION: Critically low lung volumes. Electronically signed by Vincenzo Fowler 07/16/2017 4:06 PM
[2017-07-16] MEDS: MERREM 500 MG in NS 50 ML IV SCH (17:47)
[2017-07-16 18:43] LABS: UR CREAT RANDOM 298.6 mg/dL (11-20)
[2017-07-16 19:02] LABS: UR PROT RANDOM 185.6 mg/dL
[2017-07-16 21:57] LABS: URINE SOURCE CATH
[2017-07-16 22:01] LABS: BILIRUBIN URINE NEGATIVE (NEGATIVE); BLOOD URINE MODERATE (NEGATIVE); COLOR YELLOW; GLUCOSE URINE TRACE mg/dL (NEGATIVE); LEUKOCYTES URINE TRACE (NEGATIVE); NITRITE URINE NEGATIVE (NEGATIVE); PH URINE 5.5; PROTEIN URINE 100 mg/dL (NEGATIVE); SP GRAVITY URINE 1.035; TURBIDITY URINE TURBID (CLEAR); UROBILINOGEN URINE NORMAL (NORMAL)
[2017-07-16 22:04] LABS: UR EPITHELIAL CELLS >10 /HPF (<10); URINE BACTERIA NEGATIVE /HPF; URINE MICRO REVIEW NEEDED? YES; URINE RBC TNTC /HPF (<10); URINE WBC TNTC /HPF (<10)
[2017-07-16 22:17] LABS: URINE CASTS GRANULAR PRESENT; URINE CRYSTALS NONE SEEN; URINE SMALL ROUND CELLS NONE SEEN
[2017-07-16] MEDS: ZOFRAN IV PRN (22:51)
[2017-07-16] MEDS: LIPITOR PO SCH (22:51)
[2017-07-17] MEDS: ZOFRAN IV PRN (02:20)
[2017-07-17] MEDS: NEURONTIN PO SCH ×4 (04:19→20:53)
[2017-07-17] MEDS: LIPITOR PO SCH ×2 (04:20→20:53)
[2017-07-17] MEDS: ZOSYN 3.375 GM in NS 50 ML IV SCH ×4 (05:05→20:54)
[2017-07-17] MEDS: NS 1,000 ML IV SCH ×2 (06:06→15:35)
[2017-07-17] MEDS: MERREM 500 MG in NS 50 ML IV SCH ×2 (06:20→17:26)
[2017-07-17] MEDS: HUMULIN R SUBQ SCH ×3 (06:33→15:49)
[2017-07-17 06:52] LABS: ALBUMIN 2.3 g/dL (3.5-5.0); POTASSIUM 3.5 mmol/L (3.5-5.1); TOTAL BILIRUBIN 0.33 mg/dL (0.20-1.00); TOTAL PROTEIN 5.3 g/dL (6.3-8.3)
[2017-07-17 07:12] LABS: HEMOGLOBIN 9.9 g/dL (12.0-16.0); IMM GRAN# 0.11 X1000 (0.0-0.04); IMM GRAN% 0.5 % (0.0-0.5); LYMPH# 1.21 X1000 (1.2-3.4); MANUAL DIFF NEEDED? YES; MCHC 30.9 g/dL (33-37); MCV 93.8 FL (81-99); MONO# 1.82 X1000 (0.11-0.59); MONO% 7.5 % (1.7-9.3); MPV 9.5 FL (7.4-10.4); PLT 357 X1000 (130-400); RBC 3.41 XMIL (4.2-5.4)
[2017-07-17 07:53] LABS: BANDS 6 % (0-1); LYMPHS 4 % (21-51); MONO 2 % (1-9)
[2017-07-17] MEDS: ZOLOFT PO SCH (08:45)
[2017-07-17] MEDS: VITAMIN D PO SCH (08:45)
[2017-07-17] MEDS: LOFIBRA PO SCH (08:45)
[2017-07-17] MEDS: PRILOSEC PO SCH (08:45)
[2017-07-17] MEDS: PERIDEX MT SCH ×2 (08:45→20:53)
[2017-07-17] MEDS: GLUCOSAMINE PO SCH (08:47)
--- NOTE | 2017-07-17 08:52 | Diag Imaging Result Doc PS360 ---
ABDOMEN FLAT/UPRIGHT - 07/17/2017 INDICATION: pt vomiting post surgery 3 days TECHNIQUE: Two views COMPARISON: CT abdomen pelvis 07/12/2017 FINDINGS: There is a nasogastric tube in good position. There are surgical skin chacha and a drain over the pelvis. There is diffuse gaseous distention of the small bowel. Small bowel loops measure up to 4.8 cm. There is very little colon or rectal gas. No significant free air. IMPRESSION: High-grade small bowel ileus or obstruction. Very little gas or stool throughout the colon. Electronically signed by Vincenzo Fowler 07/17/2017 8:50 AM
[2017-07-17] MEDS: NORCO-7.5 PO PRN ×2 (12:21→20:53)
[2017-07-17] MEDS: LOVENOX SUBQ SCH (16:41)
[2017-07-18] MEDS: ZOSYN 3.375 GM in NS 50 ML IV SCH ×3 (05:00→05:47)
[2017-07-18] MEDS: NORCO-7.5 PO PRN (05:45)
[2017-07-18] MEDS: MYLICON DROPS PO PRN ×3 (05:45→12:07)
[2017-07-18] MEDS: MERREM 500 MG in NS 50 ML IV SCH (05:47)
[2017-07-18] MEDS: HUMULIN R SUBQ SCH ×5 (06:05→21:22)
[2017-07-18 06:19] LABS: MANUAL DIFF NEEDED? NO
[2017-07-18 06:33] LABS: BASO% 0.1 % (0.0-0.8); EOS# 0.02 X1000 (0.0-0.7); EOS% 0.1 % (0.0-10.0); HEMATOCRIT 30.2 % (37.0-47.0); HEMOGLOBIN 9.7 g/dL (12.0-16.0); IMM GRAN# 0.06 X1000 (0.0-0.04); IMM GRAN% 0.3 % (0.0-0.5); LYMPH# 1.52 X1000 (1.2-3.4); LYMPH% 8.8 % (20.5-51.1); MCH 29.8 PG (27-31); MCHC 32.1 g/dL (33-37); MCV 92.9 FL (81-99); MONO# 1.67 X1000 (0.11-0.59); MONO% 9.6 % (1.7-9.3); MPV 9.6 FL (7.4-10.4); NEUT% 81.1 % (42.2-75.2); PLT 389 X1000 (130-400); RBC 3.25 XMIL (4.2-5.4)
[2017-07-18] MEDS: NS 1,000 ML IV SCH (06:33)
[2017-07-18 06:44] LABS: AGAP 15; ALBUMIN 2.2 g/dL (3.5-5.0); ALKALINE PHOSPHATASE 68 U/L (32-104); BUN 26 mg/dL (8-22); CALCIUM 8.3 mg/dL (8.8-10.2); CHLORIDE 106 mmol/L (98-107); COSMO 292; GOT 26 U/L (10-30); GPT 18 U/L (10-36); POTASSIUM 3.4 mmol/L (3.5-5.1); SODIUM 144 mmol/L (136-145); TCO2 23 mmol/L (25-35); TOTAL BILIRUBIN 0.28 mg/dL (0.20-1.00); TOTAL PROTEIN 5.1 g/dL (6.3-8.3)
[2017-07-18 07:34] LABS: MAGNESIUM 1.9 mg/dL (1.5-2.7)
--- NOTE | 2017-07-18 10:09 | Diag Imaging Result Doc PS360 ---
EXAM: KUB ABDOMEN INDICATION: ileus TECHNIQUE: 2 views COMPARISON: 07/17/2017 FINDINGS: The NG tube is in stable position. There is still gaseous distention of small bowel. However, it appears to have improved somewhat during the interval. There is no evidence of large volume free abdominal gas. Skin chacha and a drainage catheter injection of the pelvis. IMPRESSION: Improved postsurgical ileus. Electronically signed by Isaiah Brown 07/18/2017 10:06 AM
[2017-07-18] MEDS: ROCEPHIN 2 GM in NS 50 ML IV SCH (11:41)
[2017-07-18] MEDS: VITAMIN D PO SCH (11:43)
[2017-07-18] MEDS: LOFIBRA PO SCH (11:43)
[2017-07-18] MEDS: PRILOSEC PO SCH (11:43)
[2017-07-18] MEDS: NEURONTIN PO SCH ×3 (11:43→21:28)
[2017-07-18] MEDS: GLUCOSAMINE PO SCH (11:43)
[2017-07-18] MEDS: PERIDEX MT SCH ×2 (11:44→21:28)
[2017-07-18] MEDS: ZOLOFT PO SCH (11:44)
[2017-07-18] MEDS: SODIUM CHLORIDE 0.9% INJ PRN (11:52)
[2017-07-18] MEDS: PHENERGAN IV PRN (11:52)
[2017-07-18] MEDS: POTASSIUM CHLORIDE 20 MEQ/SWI 20 MEQ/100 ML IVPB IV SCH ×2 (13:41→17:37)
[2017-07-18] MEDS: LOVENOX SUBQ SCH (17:36)
[2017-07-18] MEDS: LIPITOR PO SCH (21:28)
[2017-07-19] MEDS: NS 1,000 ML IV SCH (00:10)
[2017-07-19] MEDS: SODIUM CHLORIDE 0.9% INJ PRN (02:33)
[2017-07-19] MEDS: PHENERGAN IV PRN (02:33)
[2017-07-19 05:45] LABS: MANUAL DIFF NEEDED? NO
[2017-07-19 05:56] LABS: BASO% 0.1 % (0.0-0.8); EOS# 0.02 X1000 (0.0-0.7); EOS% 0.1 % (0.0-10.0); HEMATOCRIT 32.3 % (37.0-47.0); HEMOGLOBIN 10.4 g/dL (12.0-16.0); IMM GRAN# 0.06 X1000 (0.0-0.04); IMM GRAN% 0.4 % (0.0-0.5); LYMPH# 1.54 X1000 (1.2-3.4); LYMPH% 10.9 % (20.5-51.1); MCH 29.5 PG (27-31); MCHC 32.2 g/dL (33-37); MCV 91.5 FL (81-99); MONO# 1.51 X1000 (0.11-0.59); MONO% 10.7 % (1.7-9.3); MPV 9.3 FL (7.4-10.4); NEUT% 77.8 % (42.2-75.2); PLT 412 X1000 (130-400); RBC 3.53 XMIL (4.2-5.4)
[2017-07-19 06:08] LABS: AGAP 15; ALBUMIN 2.4 g/dL (3.5-5.0); ALKALINE PHOSPHATASE 57 U/L (32-104); BUN 17 mg/dL (8-22); CALCIUM 8.9 mg/dL (8.8-10.2); CHLORIDE 109 mmol/L (98-107); COSMO 297; GOT 22 U/L (10-30); GPT 17 U/L (10-36); MAGNESIUM 1.7 mg/dL (1.5-2.7); POTASSIUM 3.8 mmol/L (3.5-5.1); SODIUM 148 mmol/L (136-145); TCO2 24 mmol/L (25-35); TOTAL BILIRUBIN 0.26 mg/dL (0.20-1.00); TOTAL PROTEIN 5.5 g/dL (6.3-8.3)
[2017-07-19] MEDS ORDERED: POTASSIUM PHOSPHATE 20 MMOL in NS 250 ML IV ONE (06:12)
[2017-07-19] MEDS: HUMULIN R SUBQ SCH ×3 (06:49→20:10)
[2017-07-19] MEDS: D5 1/2 NS 1,000 ML IV SCH ×2 (06:58→20:32)
[2017-07-19] MEDS: ROCEPHIN 2 GM in NS 50 ML IV SCH (10:31)
[2017-07-19] MEDS: GLUCOSAMINE PO SCH (10:31)
[2017-07-19] MEDS: VITAMIN D PO SCH (10:32)
[2017-07-19] MEDS: PRILOSEC PO SCH (10:32)
[2017-07-19] MEDS: NEURONTIN PO SCH ×3 (10:32→20:09)
[2017-07-19] MEDS: ZOLOFT PO SCH (10:32)
[2017-07-19] MEDS: LOFIBRA PO SCH (10:32)
[2017-07-19] MEDS: PERIDEX MT SCH ×2 (10:32→20:09)
[2017-07-19] MEDS ORDERED: CATAPRES-TTS-1 TD SCH (15:00)
[2017-07-19] MEDS: LOVENOX SUBQ SCH (18:14)
[2017-07-19] MEDS: LIPITOR PO SCH (20:09)
[2017-07-20 05:49] LABS: MANUAL DIFF NEEDED? NO
[2017-07-20 05:53] LABS: BASO% 0.1 % (0.0-0.8); EOS% 0.9 % (0.0-10.0); HEMATOCRIT 29.7 % (37.0-47.0); HEMOGLOBIN 9.7 g/dL (12.0-16.0); IMM GRAN# 0.04 X1000 (0.0-0.04); IMM GRAN% 0.4 % (0.0-0.5); LYMPH# 1.72 X1000 (1.2-3.4); LYMPH% 15.5 % (20.5-51.1); MCH 29.3 PG (27-31); MCHC 32.7 g/dL (33-37); MCV 89.7 FL (81-99); MONO# 1.66 X1000 (0.11-0.59); MPV 9.1 FL (7.4-10.4); NEUT% 68.1 % (42.2-75.2); PLT 371 X1000 (130-400); RBC 3.31 XMIL (4.2-5.4)
[2017-07-20 06:26] LABS: AGAP 10; ALBUMIN 2.3 g/dL (3.5-5.0); ALKALINE PHOSPHATASE 48 U/L (32-104); BUN 6 mg/dL (8-22); CALCIUM 7.9 mg/dL (8.8-10.2); CHLORIDE 108 mmol/L (98-107); COSMO 288; GOT 20 U/L (10-30); GPT 15 U/L (10-36); MAGNESIUM 1.3 mg/dL (1.5-2.7); POTASSIUM 2.7 mmol/L (3.5-5.1); SODIUM 145 mmol/L (136-145); TCO2 27 mmol/L (25-35); TOTAL BILIRUBIN 0.28 mg/dL (0.20-1.00); TOTAL PROTEIN 4.6 g/dL (6.3-8.3)
[2017-07-20] MEDS: HUMULIN R SUBQ SCH ×4 (06:52→22:07)
--- NOTE | 2017-07-20 07:46 | Diag Imaging Result Doc PS360 ---
FLAT/UPRIGHT ABD/1 VIEW CHEST - 07/20/2017 INDICATION: ileus TECHNIQUE: Three views COMPARISON: 07/18/2017 FINDINGS: There is a nasogastric tube in good position in the stomach. Lung volumes are very low. There is cardiomegaly. No focal infiltrates, pneumothorax, or pleural effusion. There is a surgical drain in the pelvis. There are skin chacha over the pelvis as well. No bowel obstruction or free air. IMPRESSION: No acute disease. Electronically signed by Vincenzo Fowler 07/20/2017 7:44 AM
[2017-07-20] MEDS: VITAMIN D PO SCH (08:44)
[2017-07-20] MEDS: NEURONTIN PO SCH ×3 (08:44→22:06)
[2017-07-20] MEDS: ROCEPHIN 2 GM in NS 50 ML IV SCH (08:44)
[2017-07-20] MEDS: PRILOSEC PO SCH (08:44)
[2017-07-20] MEDS: ZOLOFT PO SCH (08:44)
[2017-07-20] MEDS: GLUCOSAMINE PO SCH (08:44)
[2017-07-20] MEDS: PERIDEX MT SCH ×2 (08:44→22:06)
[2017-07-20] MEDS: LOFIBRA PO SCH (08:44)
[2017-07-20] MEDS: NORCO-7.5 PO PRN (09:00)
[2017-07-20] MEDS ORDERED: POTASSIUM PHOSPHATE 40 MMOL in NS 250 ML IV ONE (09:00)
[2017-07-20] MEDS: LABETALOL IV PRN (09:01)
[2017-07-20 15:43] LABS: POTASSIUM 3.6 mmol/L (3.5-5.1)
[2017-07-20] MEDS ORDERED: MAGNESIUM SULFATE 2 GM/S.W.I. 2 GM/50 ML IVPB IV ONE (16:00)
[2017-07-20] MEDS: LOVENOX SUBQ SCH (16:10)
[2017-07-20] MEDS: LIPITOR PO SCH (22:06)
[2017-07-20] MEDS: D5 1/2 NS 1,000 ML IV SCH (22:29)
[2017-07-21] MEDS: SODIUM CHLORIDE 0.9% INJ PRN (05:37)
[2017-07-21] MEDS: PHENERGAN IV PRN (05:37)
[2017-07-21] MEDS: LABETALOL IV PRN (05:50)
[2017-07-21 05:55] LABS: MANUAL DIFF NEEDED? NO
[2017-07-21 05:59] LABS: BASO% 0.2 % (0.0-0.8); EOS# 0.18 X1000 (0.0-0.7); EOS% 1.6 % (0.0-10.0); HEMATOCRIT 31.7 % (37.0-47.0); HEMOGLOBIN 10.3 g/dL (12.0-16.0); IMM GRAN# 0.12 X1000 (0.0-0.04); IMM GRAN% 1.1 % (0.0-0.5); LYMPH# 2.05 X1000 (1.2-3.4); MCH 29.1 PG (27-31); MCHC 32.5 g/dL (33-37); MCV 89.5 FL (81-99); MONO# 1.65 X1000 (0.11-0.59); MONO% 14.5 % (1.7-9.3); MPV 9.3 FL (7.4-10.4); NEUT% 64.6 % (42.2-75.2); PLT 391 X1000 (130-400); RBC 3.54 XMIL (4.2-5.4)
[2017-07-21 06:17] LABS: AGAP 13; ALBUMIN 2.4 g/dL (3.5-5.0); ALKALINE PHOSPHATASE 47 U/L (32-104); BUN 3 mg/dL (8-22); CALCIUM 7.4 mg/dL (8.8-10.2); CHLORIDE 102 mmol/L (98-107); COSMO 282; GOT 21 U/L (10-30); GPT 14 U/L (10-36); MAGNESIUM 1.5 mg/dL (1.5-2.7); POTASSIUM 3.2 mmol/L (3.5-5.1); SODIUM 142 mmol/L (136-145); TCO2 27 mmol/L (25-35); TOTAL BILIRUBIN 0.27 mg/dL (0.20-1.00); TOTAL PROTEIN 4.4 g/dL (6.3-8.3)
[2017-07-21] MEDS ORDERED: MAGNESIUM SULFATE 2 GM/S.W.I. 2 GM/50 ML IVPB IV ONE (06:40)
[2017-07-21] MEDS ORDERED: POTASSIUM CHLORIDE 60 MEQ in NS 500 ML IV ONE (08:00)
[2017-07-21] MEDS: ROCEPHIN 2 GM in NS 50 ML IV SCH (08:15)
[2017-07-21] MEDS: GLUCOSAMINE PO SCH (08:27)
[2017-07-21] MEDS: PRILOSEC PO SCH (08:27)
[2017-07-21] MEDS: NEURONTIN PO SCH ×3 (08:28→20:49)
[2017-07-21] MEDS: VITAMIN D PO SCH (08:28)
[2017-07-21] MEDS: ZOLOFT PO SCH (08:28)
[2017-07-21] MEDS: PRINIVIL PO SCH (08:28)
[2017-07-21] MEDS: LOFIBRA PO SCH (08:28)
[2017-07-21] MEDS: PERIDEX MT SCH ×2 (08:28→20:49)
[2017-07-21] MEDS: NORVASC PO SCH (08:28)
[2017-07-21] MEDS: HUMULIN R SUBQ SCH ×3 (08:32→16:37)
[2017-07-21] MEDS ORDERED: APRESOLINE PO SCH (09:00)
[2017-07-21] MEDS ORDERED: NORVASC PO SCH (09:00)
[2017-07-21] MEDS ORDERED: D5 1/2 NS 1,000 ML IV SCH (10:38)
[2017-07-21] MEDS: LOVENOX SUBQ SCH (15:03)
[2017-07-21] MEDS: LIPITOR PO SCH (20:49)
[2017-07-22] MEDS: HUMULIN R SUBQ SCH ×5 (01:22→22:25)
[2017-07-22] MEDS: NORCO-7.5 PO PRN ×2 (03:35→08:40)
[2017-07-22 06:41] LABS: AGAP 8; ALBUMIN 2.1 g/dL (3.5-5.0); BUN 2 mg/dL (8-22); CALCIUM 7.8 mg/dL (8.8-10.2); CHLORIDE 102 mmol/L (98-107); COSMO 278; POTASSIUM 3.2 mmol/L (3.5-5.1); SODIUM 140 mmol/L (136-145); TCO2 30 mmol/L (25-35)
[2017-07-22 06:42] LABS: BASO% 0.2 % (0.0-0.8); EOS% 1.6 % (0.0-10.0); HEMATOCRIT 30.5 % (37.0-47.0); HEMOGLOBIN 9.8 g/dL (12.0-16.0); IMM GRAN% 1.6 % (0.0-0.5); LYMPH# 1.85 X1000 (1.2-3.4); LYMPH% 14.6 % (20.5-51.1); MANUAL DIFF NEEDED? YES; MCH 28.9 PG (27-31); MCHC 32.1 g/dL (33-37); MONO# 1.78 X1000 (0.11-0.59); MPV 9.1 FL (7.4-10.4); PLT 384 X1000 (130-400); RBC 3.39 XMIL (4.2-5.4)
[2017-07-22 06:55] LABS: BANDS 2 % (0-1); EOS 6 % (1-10); LYMPHS 12 % (21-51); MONO 6 % (1-9)
[2017-07-22] MEDS ORDERED: KLOR-CON PO ONE (08:19)
[2017-07-22] MEDS: PRILOSEC PO SCH (08:32)
[2017-07-22] MEDS: VITAMIN D PO SCH (08:32)
[2017-07-22] MEDS: NORVASC PO SCH (08:32)
[2017-07-22] MEDS: NEURONTIN PO SCH ×3 (08:32→22:26)
[2017-07-22] MEDS: GLUCOSAMINE PO SCH (08:32)
[2017-07-22] MEDS: PERIDEX MT SCH ×2 (08:32→22:25)
[2017-07-22] MEDS: LOFIBRA PO SCH (08:32)
[2017-07-22] MEDS: ZOLOFT PO SCH (08:32)
[2017-07-22] MEDS: PRINIVIL PO SCH (08:32)
[2017-07-22] MEDS: ROCEPHIN 2 GM in NS 50 ML IV SCH (08:33)
[2017-07-22] MEDS ORDERED: NEUTRA-PHOS PO ONE (15:19)
[2017-07-22] MEDS ORDERED: VITAMIN D PO SCH (15:30)
[2017-07-22] MEDS ORDERED: MAGNESIUM SULFATE 2 GM/S.W.I. 2 GM/50 ML IVPB IV ONE (16:00)
[2017-07-22] MEDS: LOVENOX SUBQ SCH (16:17)
[2017-07-22] MEDS: LIPITOR PO SCH (22:26)
[2017-07-23] MEDS: NORCO-7.5 PO PRN ×2 (05:17→20:15)
[2017-07-23 05:44] LABS: MANUAL DIFF NEEDED? NO
[2017-07-23 05:55] LABS: BASO% 0.3 % (0.0-0.8); EOS# 0.29 X1000 (0.0-0.7); EOS% 1.7 % (0.0-10.0); HEMATOCRIT 31.1 % (37.0-47.0); HEMOGLOBIN 9.9 g/dL (12.0-16.0); IMM GRAN# 0.25 X1000 (0.0-0.04); IMM GRAN% 1.5 % (0.0-0.5); LYMPH# 2.19 X1000 (1.2-3.4); LYMPH% 13.2 % (20.5-51.1); MCHC 31.8 g/dL (33-37); MCV 91.2 FL (81-99); MONO# 2.08 X1000 (0.11-0.59); MONO% 12.5 % (1.7-9.3); MPV 9.4 FL (7.4-10.4); NEUT% 70.8 % (42.2-75.2); PLT 408 X1000 (130-400); RBC 3.41 XMIL (4.2-5.4)
[2017-07-23] MEDS: HUMULIN R SUBQ SCH ×4 (06:14→22:50)
[2017-07-23 06:31] LABS: MANUAL DIFF NEEDED? NO
[2017-07-23 06:35] LABS: BASO% 0.2 % (0.0-0.8); EOS# 0.35 X1000 (0.0-0.7); EOS% 2.1 % (0.0-10.0); HEMATOCRIT 30.7 % (37.0-47.0); HEMOGLOBIN 9.9 g/dL (12.0-16.0); IMM GRAN# 0.29 X1000 (0.0-0.04); IMM GRAN% 1.7 % (0.0-0.5); LYMPH# 2.17 X1000 (1.2-3.4); LYMPH% 12.8 % (20.5-51.1); MCH 29.4 PG (27-31); MCHC 32.2 g/dL (33-37); MCV 91.1 FL (81-99); MONO# 2.01 X1000 (0.11-0.59); MONO% 11.8 % (1.7-9.3); MPV 9.1 FL (7.4-10.4); NEUT% 71.4 % (42.2-75.2); PLT 401 X1000 (130-400); RBC 3.37 XMIL (4.2-5.4)
[2017-07-23 06:36] LABS: AGAP 13; ALBUMIN 2.2 g/dL (3.5-5.0); BUN 3 mg/dL (8-22); CALCIUM 7.5 mg/dL (8.8-10.2); CHLORIDE 102 mmol/L (98-107); COSMO 277; POTASSIUM 3.8 mmol/L (3.5-5.1); SODIUM 140 mmol/L (136-145); TCO2 25 mmol/L (25-35)
[2017-07-23 07:38] LABS: URINE CULTURE NEEDED? NO; URINE MICRO REVIEW NEEDED? NO; URINE SOURCE CLEAN CATCH
[2017-07-23 07:42] LABS: BILIRUBIN URINE NEGATIVE (NEGATIVE); BLOOD URINE NEGATIVE (NEGATIVE); COLOR STRAW; GLUCOSE URINE NEGATIVE (NEGATIVE); LEUKOCYTES URINE NEGATIVE (NEGATIVE); NITRITE URINE NEGATIVE (NEGATIVE); PH URINE 7.5; PROTEIN URINE NEGATIVE (NEGATIVE); SP GRAVITY URINE 1.001; TURBIDITY URINE CLEAR (CLEAR); UROBILINOGEN URINE NORMAL (NORMAL)
[2017-07-23 07:44] LABS: UR EPITHELIAL CELLS <10 /HPF (<10); URINE BACTERIA NEGATIVE /HPF; URINE RBC <10 /HPF (<10); URINE WBC <10 /HPF (<10)
[2017-07-23] MEDS: ROCEPHIN 2 GM in NS 50 ML IV SCH (08:56)
[2017-07-23] MEDS: NORVASC PO SCH (08:57)
[2017-07-23] MEDS: NEURONTIN PO SCH ×4 (08:57→21:00)
[2017-07-23] MEDS: GLUCOSAMINE PO SCH (08:57)
[2017-07-23] MEDS: ZOLOFT PO SCH (08:57)
[2017-07-23] MEDS: PERIDEX MT SCH ×2 (08:57→21:00)
[2017-07-23] MEDS: LOFIBRA PO SCH (08:57)
[2017-07-23] MEDS: PRINIVIL PO SCH (08:57)
[2017-07-23] MEDS: PRILOSEC PO SCH (08:57)
[2017-07-23] MEDS ORDERED: NEUTRA-PHOS PO ONE (11:02)
[2017-07-23] MEDS: APRESOLINE PO SCH ×2 (13:52→21:00)
[2017-07-23] MEDS: LOVENOX SUBQ SCH (16:40)
[2017-07-23] MEDS: ZOFRAN IV PRN (20:15)
[2017-07-23] MEDS: LIPITOR PO SCH (21:00)
[2017-07-24] MEDS: APRESOLINE PO SCH ×3 (05:28→21:32)
[2017-07-24 05:49] LABS: MANUAL DIFF NEEDED? NO
[2017-07-24 05:58] LABS: BASO% 0.2 % (0.0-0.8); EOS# 0.31 X1000 (0.0-0.7); HEMATOCRIT 30.7 % (37.0-47.0); HEMOGLOBIN 9.7 g/dL (12.0-16.0); IMM GRAN% 1.9 % (0.0-0.5); LYMPH# 2.83 X1000 (1.2-3.4); LYMPH% 18.3 % (20.5-51.1); MCH 29.1 PG (27-31); MCHC 31.6 g/dL (33-37); MCV 92.2 FL (81-99); MONO# 1.93 X1000 (0.11-0.59); MONO% 12.5 % (1.7-9.3); MPV 9.3 FL (7.4-10.4); NEUT% 65.1 % (42.2-75.2); PLT 433 X1000 (130-400); RBC 3.33 XMIL (4.2-5.4)
[2017-07-24] MEDS: HUMULIN R SUBQ SCH ×4 (06:13→21:33)
[2017-07-24 06:14] LABS: AGAP 9; ALBUMIN 2.2 g/dL (3.5-5.0); BUN 4 mg/dL (8-22); CALCIUM 8.2 mg/dL (8.8-10.2); CHLORIDE 103 mmol/L (98-107); COSMO 283; POTASSIUM 4.3 mmol/L (3.5-5.1); SODIUM 143 mmol/L (136-145); TCO2 31 mmol/L (25-35)
[2017-07-24] MEDS: NEURONTIN PO SCH ×3 (08:18→21:33)
[2017-07-24] MEDS: ZOLOFT PO SCH (08:18)
[2017-07-24] MEDS: PRINIVIL PO SCH (08:18)
[2017-07-24] MEDS: PRILOSEC PO SCH (08:18)
[2017-07-24] MEDS: GLUCOSAMINE PO SCH (08:18)
[2017-07-24] MEDS: PERIDEX MT SCH ×2 (08:18→21:34)
[2017-07-24] MEDS: NORVASC PO SCH (08:18)
[2017-07-24] MEDS: ROCEPHIN 2 GM in NS 50 ML IV SCH (08:20)
[2017-07-24] MEDS: LOFIBRA PO SCH (09:50)
[2017-07-24] MEDS ORDERED: MAGNESIUM SULFATE 2 GM/S.W.I. 2 GM/50 ML IVPB IV ONE (16:00)
[2017-07-24] MEDS: ZOFRAN IV PRN (16:26)
[2017-07-24] MEDS: LOVENOX SUBQ SCH (16:26)
[2017-07-24] MEDS: NORCO-7.5 PO PRN (17:22)
[2017-07-24] MEDS: LIPITOR PO SCH (21:34)
[2017-07-25] MEDS: APRESOLINE PO SCH (05:14)
[2017-07-25 06:05] LABS: MANUAL DIFF NEEDED? NO
[2017-07-25] MEDS: HUMULIN R SUBQ SCH (06:08)
[2017-07-25 06:18] LABS: BASO% 0.3 % (0.0-0.8); EOS# 0.22 X1000 (0.0-0.7); EOS% 1.8 % (0.0-10.0); HEMATOCRIT 30.9 % (37.0-47.0); HEMOGLOBIN 9.8 g/dL (12.0-16.0); IMM GRAN# 0.27 X1000 (0.0-0.04); IMM GRAN% 2.2 % (0.0-0.5); LYMPH# 2.38 X1000 (1.2-3.4); LYMPH% 19.4 % (20.5-51.1); MCH 29.3 PG (27-31); MCHC 31.7 g/dL (33-37); MCV 92.2 FL (81-99); MONO# 1.67 X1000 (0.11-0.59); MONO% 13.6 % (1.7-9.3); MPV 9.3 FL (7.4-10.4); NEUT% 62.7 % (42.2-75.2); PLT 438 X1000 (130-400); RBC 3.35 XMIL (4.2-5.4)
[2017-07-25 06:39] LABS: AGAP 11; ALBUMIN 2.2 g/dL (3.5-5.0); BUN 4 mg/dL (8-22); CALCIUM 8.5 mg/dL (8.8-10.2); CHLORIDE 103 mmol/L (98-107); COSMO 283; POTASSIUM 3.5 mmol/L (3.5-5.1); SODIUM 143 mmol/L (136-145); TCO2 29 mmol/L (25-35)
[2017-07-25 08:25] VITALS: BP 142/55
[2017-07-25] MEDS: PRILOSEC PO SCH (09:09)
[2017-07-25] MEDS: PRINIVIL PO SCH (09:09)
[2017-07-25] MEDS: NORVASC PO SCH (09:09)
[2017-07-25] MEDS: ZOLOFT PO SCH (09:09)
[2017-07-25] MEDS: LOFIBRA PO SCH (09:09)
[2017-07-25] MEDS: PERIDEX MT SCH (09:09)
[2017-07-25] MEDS: ROCEPHIN 2 GM in NS 50 ML IV SCH (09:09)
[2017-07-25] MEDS: NEURONTIN PO SCH (09:09)
[2017-07-25] MEDS: GLUCOSAMINE PO SCH (09:10)
== END 2017-07-25 11:05 | disposition home health service (06) ==
LOC: CT 09:05 → 3N 11:24 → SUATTDRO 11:24 → 4N 07-14 13:45
PROVIDERS: ATTEND Internal Medicine

== ENCOUNTER 2019-11-28 08:25 | Day surgery (SDC) ==
--- NOTE | 2019-10-15 11:40 | EKG Report ---
Test Performed on : 10/15/2019 11:32:06 AM Test Reason : PAT Blood Pressure : / mmHG Vent. Rate : 071 BPM Atrial Rate : 071 BPM P-R Int : 178 ms QRS Dur : 090 ms QT Int : 414 ms P-R-T Axes : 045 017 024 degrees QTc Int : 449 ms Normal sinus rhythm. Normal ECG When compared with ECG of 22-MAY-2017 09:27, No significant change was found Confirmed by Misha ENGLAND, León Jacobo ([id number]) on 10/17/2019 10:18:25 AM
[2019-10-15 11:42] LABS: URINE SOURCE CLEAN CATCH
[2019-10-15 11:51] LABS: BASO# 0.05 X1000 (0.0-0.2); BASO% 0.4 % (0.0-0.8); EOS# 0.12 X1000 (0.0-0.7); HEMATOCRIT 46.3 % (37.0-47.0); HEMOGLOBIN 15.1 g/dL (12.0-16.0); IMM GRAN# 0.06 X1000 (0.0-0.04); IMM GRAN% 0.5 % (0.0-0.5); LYMPH# 2.95 X1000 (1.2-3.4); LYMPH% 24.4 % (20.5-51.1); MCHC 32.6 g/dL (33-37); MONO# 0.94 X1000 (0.11-0.59); MONO% 7.8 % (1.7-9.3); MPV 10.4 FL (7.4-10.4); NEUT# 7.98 X1000 (1.4-6.5); NEUT% 65.9 % (42.2-75.2); PLT 234 X1000 (130-400); RBC 5.03 XMIL (4.2-5.4); RDW 13.2 % (11.5-14.5)
[2019-10-15 11:56] LABS: INR 0.98
[2019-10-15 11:57] LABS: PTT 27.2 Seconds (22.3-41.8)
[2019-10-15 11:58] LABS: BILIRUBIN URINE NEGATIVE (NEGATIVE); BLOOD URINE NEGATIVE (NEGATIVE); COLOR STRAW; GLUCOSE URINE NEGATIVE (NEGATIVE); KETONE URINE NEGATIVE (NEGATIVE); LEUKOCYTES URINE SMALL (NEGATIVE); NITRITE URINE NEGATIVE (NEGATIVE); PROTEIN URINE NEGATIVE (NEGATIVE); SP GRAVITY URINE 1.005; TURBIDITY URINE CLEAR (CLEAR); UR EPITHELIAL CELLS <10 /HPF (<10); URINE BACTERIA NEGATIVE /HPF; URINE RBC <10 /HPF (<10); URINE WBC <10 /HPF (<10); UROBILINOGEN URINE NORMAL (NORMAL)
[2019-10-15 12:11] LABS: AGAP 13; BUN 13 mg/dL (8-22); CALCIUM 9.6 mg/dL (8.8-10.2); CHLORIDE 99 mmol/L (98-107); COSMO 280; CREATININE 0.5 mg/dL (0.5-0.9); ESTIMATED GFR > 60; GLUCOSE 116 mg/dL (70-104); POTASSIUM 3.9 mmol/L (3.5-5.1); SODIUM 140 mmol/L (136-145); TCO2 28 mmol/L (25-35)
[2019-10-15 12:44] LABS: HEMOGLOBIN A1C 6.2 % (4.8-6.0)
[2019-11-28] MEDS ORDERED: LR 1,000 ML ONE (08:36)
[2019-11-28] MEDS ORDERED: CELEBREX ONE (08:36)
[2019-11-28] MEDS ORDERED: LYRICA ONE (08:36)
[2019-11-28] MEDS ORDERED: COLACE ONE (08:36)
[2019-11-28] MEDS ORDERED: PEPCID ONE (08:36)
[2019-11-28] MEDS ORDERED: KEFZOL 1 GM/D5W 2 GM/100 ML IVPB ONE (08:36)
[2019-11-28] MEDS ORDERED: REGLAN ONE (08:36)
[2019-11-28 09:08] LABS: BASO# 0.04 X1000 (0.0-0.2); BASO% 0.4 % (0.0-0.8); EOS# 0.15 X1000 (0.0-0.7); EOS% 1.5 % (0.0-10.0); HEMATOCRIT 43.5 % (37.0-47.0); HEMOGLOBIN 14.4 g/dL (12.0-16.0); IMM GRAN# 0.05 X1000 (0.0-0.04); IMM GRAN% 0.5 % (0.0-0.5); LYMPH# 2.23 X1000 (1.2-3.4); MCH 30.3 PG (27-31); MCHC 33.1 g/dL (33-37); MCV 91.6 FL (81-99); MONO# 0.82 X1000 (0.11-0.59); MONO% 8.5 % (1.7-9.3); MPV 10.2 FL (7.4-10.4); NEUT% 66.1 % (42.2-75.2); PLT 232 X1000 (130-400); RBC 4.75 XMIL (4.2-5.4); RDW 13.1 % (11.5-14.5); WBC 9.69 X1000 (4.8-10.8)
[2019-11-28] MEDS ORDERED: DIPRIVAN 1% ONE ×2 (09:55→10:27)
[2019-11-28] MEDS ORDERED: FENTANYL ONE ×2 (09:55→10:59)
[2019-11-28] MEDS ORDERED: VERSED ONE (09:55)
[2019-11-28] MEDS ORDERED: TORADOL ONE ×2 (09:58→11:09)
[2019-11-28] MEDS ORDERED: VANCOMYCIN ONE (09:58)
[2019-11-28] MEDS ORDERED: MARCAINE 0.25% PF ONE (09:58)
[2019-11-28] MEDS ORDERED: DURAMORPH ONE (09:58)
[2019-11-28] MEDS ORDERED: SODIUM CHLORIDE 0.9% ONE (09:59)
[2019-11-28] MEDS ORDERED: EXPAREL 1.3% ONE (09:59)
[2019-11-28] MEDS ORDERED: CYKLOKAPRON 1,000 MG/NS 1,000 MG/100 ML IVPB ONE ×2 (09:59→10:00)
[2019-11-28] MEDS ORDERED: NEOSPORIN G.U. IRRIGANT ONE (09:59)
[2019-11-28] MEDS ORDERED: BREVIBLOC ONE (11:09)
[2019-11-28] MEDS ORDERED: ZOFRAN ONE (11:09)
[2019-11-28] MEDS ORDERED: DECADRON ONE (11:09)
[2019-11-28] MEDS ORDERED: XYLOCAINE-MPF 2% ONE (11:09)
[2019-11-28] MEDS ORDERED: OFIRMEV 1000 MG/ISOTONIC SOLN 1,000 MG/100 ML BOTTLE ONE (11:09)
[2019-11-28] MEDS ORDERED: DILAUDID ONE (11:25)
[2019-11-28 11:30] LABS: URINE SOURCE CATH
[2019-11-28 11:42] LABS: BILIRUBIN URINE NEGATIVE (NEGATIVE); BLOOD URINE NEGATIVE (NEGATIVE); COLOR YELLOW; GLUCOSE URINE NEGATIVE (NEGATIVE); KETONE URINE NEGATIVE (NEGATIVE); LEUKOCYTES URINE NEGATIVE (NEGATIVE); NITRITE URINE NEGATIVE (NEGATIVE); PROTEIN URINE NEGATIVE (NEGATIVE); SP GRAVITY URINE 1.012; TURBIDITY URINE CLEAR (CLEAR); UROBILINOGEN URINE NORMAL (NORMAL)
[2019-11-28 11:44] LABS: UR EPITHELIAL CELLS <10 /HPF (<10); URINE BACTERIA NEGATIVE /HPF; URINE RBC <10 /HPF (<10); URINE WBC <10 /HPF (<10)
[2019-11-28] MEDS ORDERED: EPHEDRINE ONE (13:03)
[2019-11-28] MEDS ORDERED: SODIUM CHLORIDE 0.9% 10 ML ONE (13:03)
[2019-11-28] MEDS ORDERED: NS 1,000 ML ONE (14:18)
[2019-11-28] MEDS ORDERED: MILK OF MAGNESIA PO PRN (14:45)
[2019-11-28] MEDS ORDERED: OXY IR PO PRN (14:45)
[2019-11-28] MEDS ORDERED: MORPHINE IV PRN ×3 (14:45)
[2019-11-28] MEDS ORDERED: ZOFRAN PO PRN (14:45)
--- NOTE | 2019-11-28 15:11 | Diag Imaging Result Doc PS360 ---
KNEE 1-2 VIEWS-LEFT - 11/28/2019 INDICATION: left TKA TECHNIQUE: Two views COMPARISON: 07/05/2018 FINDINGS: There has been left total knee arthroplasty with patellar resurfacing. No hardware fracture or loosening. Alignment is anatomic. There is a stable intramedullary charlotte in the femur. IMPRESSION: No complication. Electronically signed by Vincenzo Fowler 11/28/2019 3:09 PM
[2019-11-28] MEDS: OXY IR PO PRN ×2 (15:54→20:35)
[2019-11-28] MEDS: NS 1,000 ML IV SCH ×2 (15:55→16:10)
[2019-11-28] MEDS: ZOLOFT PO SCH (16:10)
[2019-11-28] MEDS: PRINZIDE 20/12.5MG PO SCH ×2 (16:10→20:35)
[2019-11-28] MEDS: NORVASC PO SCH (16:11)
[2019-11-28] MEDS: KEFZOL 2 GM/D5W 2 GM/50 ML IVPB IV SCH (17:39)
[2019-11-28] MEDS: TYLENOL PO SCH (17:39)
[2019-11-28] MEDS: PERIDEX MT SCH (20:34)
[2019-11-28] MEDS: COLACE PO SCH (20:36)
[2019-11-28] MEDS ORDERED: LIPITOR PO SCH (21:00)
--- NOTE | 2019-11-28 21:09 | OPERATIVE NOTE ---
PROCEDURE DATE: 11/28/2019 PREOPERATIVE DIAGNOSIS: Degenerative arthritis left knee. POSTOPERATIVE DIAGNOSIS: Degenerative arthritis left knee. PROCEDURES: Left total knee arthroplasty. DePuy Attune size 4 posterior stabilized femur, size 4 tibial tray, 12 mm rotating platform tibial insert, and a 32 mm medialized anatomic patella. SURGEONS: Joseph Monet MD FIRST ASSISTANTS: Bekah Painting, who is necessary for proper retraction and manipulation of the extremity during the case, and improved efficiency. SECOND ELECTRONIC DATA PROCESSING AUDITOR: Ulises Page RN. ANESTHESIA: General. IV FLUIDS: 1200 mL lactated Ringer's. ESTIMATED BLOOD LOSS: 50 mL. TOURNIQUET TIME: 2 hours at 300 mmHg. COMPLICATIONS: None. INDICATION: The patient is a 73-year-old female with chronic history of worsening pain and discomfort of the left knee. X-rays revealed significant degenerative process. Patient has had significant degenerative osteoarthritis. Recommendation to proceed with left total knee arthroplasty was offered. Risks and benefits of surgery were explained, including the risks of anesthesia, , bleeding, infection, failure to relieve pain, postoperative stiffness, nerve injury, blood clots, and other imponderables. All questions answered. Patient and family wished to proceed with surgery. DETAILS OF OPERATION: The patient was taken the operating room and placed supine on the operating table. Once adequate anesthesia was obtained, patient's left lower extremity was subsequently prepped and draped in the usual sterile fashion. Esmarch was used to exsanguinate the left lower extremity. The tourniquet was inflated to 300 mmHg. A standard anterior incision made with a skin knife. Medial and lateral skin envelopes were developed. Standard medial parapatellar arthrotomy was then performed. Patella fat pad was excised. Retractors were then placed. Approximately 1 cm anterior to the PCL insertion, starting reamer was passed. Intramedullary guide was placed into the distal portion of the femur. The guide was then pinned in position. The patient was noted have significant deficiency of the medial compartment. After positioning the guide, distal femoral cut was then performed in standard fashion. Attention then turned to the proximal tibia where using the extramedullary guide, the proximal tibia cutting block was pinned in position. Had good alignment confirmed with the alignment charlotte. The proximal tibia was then resected. Medial and lateral menisci were excised. A spacer block was placed and was somewhat tight in extension, specifically medially. Therefore, repositioned the distal cutting block and resection was then performed and had good soft tissue balancing with a spacer block in full extension. After this had been performed, the sizing block was placed and measured for a size 4. Corresponding pins were placed. A size 4 cutting block was placed and pinned in position. Anterior, posterior, and chamfer cuts were then made. A box cutting guide on the spacer block was placed and had good soft tissue balance with flexion and extension. A box cutting guide was pinned on the distal femur. A box cut was performed. Attention then turned to the proximal tibia where using the extramedullary, a size 4 tibial tray appeared to be the correct size. This was pinned in position followed by a central reamer and a fin punch. Trial femoral component was then placed. Two lug holes were drilled. Trial tibial insert was then placed and good patellofemoral tracking. Patella had been he everted earlier in the case and resected and protective disk was placed. Attention then turned to the patella once again, and the disk was then removed. The size 32 appeared to be the correct size. Corresponding holes were drilled. The patella was then placed and had good patellofemoral tracking. The trial components were removed. The wound was copiously with antibiotic pulsatile lavage while vancomycin was mixed with cement on back table. Sequential cementing was then performed first with the tibial tray and excess cement was removed with a [place] followed by the femoral component. Excess cement was removed with a [place] followed by the trial tibial insert in full extension and axial loading was maintained while cement cured. Patella component was cemented in standard fashion. Patella clamp was placed. While cement was curing, Exparel was placed in deep soft tissue, as well as subcutaneous tissue. After cement had cured, peripheral cement was removed with a small osteotome. The 12 mm rotating platform tibial insert appeared to correct size. The trial insert was removed. Exparel was placed deep posterior capsule. The wound was copiously irrigated once again. The 12 mm rotating platform tibial insert was then placed and had good soft tissue balance and good range of motion. A 1/8 Hemovac drain was placed and was not sewn in. The wound was copiously irrigated and arthrotomy was repaired with #1 Vicryl. Patient did have some popping with flexion of the patella and was the arthrotomy was opened up once again, and the drain was removed. It was resewn and appeared to have acceptable tracking of the patella. Final irrigation was then performed. 2-0 Vicryl was used for subcutaneous tissue, followed by skin chacha. Adaptic, sterile 4 x 4s, ABD pad, Webril cryo unit, and Mat wrap go the left lower extremity. Patient tolerated procedure well was transferred to the recovery room in stable condition. cc: Joseph Monet MD
[2019-11-29] MEDS: KEFZOL 2 GM/D5W 2 GM/50 ML IVPB IV SCH (02:51)
[2019-11-29] MEDS: NS 1,000 ML IV SCH ×2 (02:52→08:13)
[2019-11-29] MEDS ORDERED: XARELTO PO SCH (06:00)
[2019-11-29] MEDS ORDERED: PRILOSEC PO SCH (07:00)
[2019-11-29 07:15] LABS: HEMATOCRIT 38.9 % (37.0-47.0); HEMOGLOBIN 12.7 g/dL (12.0-16.0)
[2019-11-29] MEDS: TYLENOL PO SCH ×2 (07:19→08:13)
--- NOTE | 2019-11-29 08:13 | ORTHOPAEDICS PROGRESS NOTE ---
DATE: 11/29/2019 SUBJECTIVE: The patient is a 73-year-old female who is 1 day status post left total knee arthroplasty. She is currently resting comfortably. OBJECTIVE: On physical examination, the patient's left lower extremity, her dressing is intact. Her calf is soft. She has active dorsiflexion and plantar flexion. She is neurovascularly intact distally. She is able to perform straight leg raise. Her labs are pending. IMPRESSION: Postoperative day number 1, status post left total knee arthroplasty. PLAN: At this point, we will begin mobilization with physical therapy. We will plan on discharging home once she is mobilizing well. We will arrange for home physical therapy. I will change her dressing this morning. cc: Joseph Monet MD
[2019-11-29 08:15] LABS: AGAP 12; BUN 12 mg/dL (8-22); CALCIUM 8.5 mg/dL (8.8-10.2); CHLORIDE 99 mmol/L (98-107); COSMO 274; CREATININE 0.5 mg/dL (0.5-0.9); ESTIMATED GFR > 60; GLUCOSE 145 mg/dL (70-104); POTASSIUM 4.4 mmol/L (3.5-5.1); SODIUM 136 mmol/L (136-145); TCO2 25 mmol/L (25-35)
[2019-11-29] MEDS: PERIDEX MT SCH (08:18)
[2019-11-29] MEDS: COLACE PO SCH (08:19)
[2019-11-29] MEDS: PRINZIDE 20/12.5MG PO SCH (08:19)
[2019-11-29] MEDS: ZOLOFT PO SCH (08:19)
[2019-11-29] MEDS: NORVASC PO SCH (08:19)
[2019-11-29 11:38] VITALS: BP 154/59
== END 2019-11-29 12:40 | disposition home health service (06) ==
LOC: OR 08:25 → 4N 08:25 → OR 11-29 12:40
PROVIDERS: ATTEND Orthopaedic Surgery Adult Reconstructive Orthopaedic Surgery